=== PATIENT | male | born 1950 | race Caucasian/White ===

== ENCOUNTER 2018-08-27 12:13 | Emergency (ER) | payer OTHER ==
[~2018-08-27] VITALS: Ht 172.7 cm; Wt 77.6 kg
[2018-08-27 12:20] VITALS: Ht 172.7 cm; Wt 77.6 kg
[2018-08-27] MEDS ORDERED: SOD CHLORIDE 0.9% 1,000 ML IV STA (13:26)
[2018-08-27] MEDS ORDERED: ALBUTEROL 0.083% (NEB) 2.5 MG/3 ML AMP HHN STA (13:26)
[2018-08-27] MEDS ORDERED: IPRATROPIUM (NEB) 0.5 MG/2.5 ML AMP INH ONE (13:30)
--- NOTE | 2018-08-27 13:41 | ERD ---
ER Documentation Chief Complaint Chief Complaint chest pain radiating to lt arm x 5 days HPI This is a 68-year-old male with no past medical history. The patient does smoke tobacco. He indicates for the past 5 days he has been having a productive cough with right-sided chest pain. . The patient went to his primary care physician and had been placed on Levaquin as he states he had similar symptoms 20 years prior to arrival when he was diagnosed with pneumonia. He has taken 500 mg of Levaquin once daily for the past 4 days. He however indicates that initially the chest pain was 10 out of 10 and was a pleuritic chest pain. He indicates that it has improved but not completely resolved. He denies any recent travel or prolonged immobilization. He has no swelling or pain of his lower extremities. He has had a tactile fever with shaking and chills and no antipyretics were taken prior to arrival. The patient does state that the pain today did begin to radiate to the left chest wall and left arm. The pain was exacerbated when he would cough or move his upper extremities. He has no family history of coronary artery disease. ROS All systems reviewed and are negative except as per history of present illness. Medications Home Meds Active Scripts Albuterol Sulfate* (Proair HFA*) 8.5 Gm Hfa.aer.ad, 2 PUFF INH Q6H PRN for WHEEZING AND SOB, #1 INHALER Prov:MILKA DAVENPORT MD 08/27/18 Reported Medications Levofloxacin* (Levaquin*) 500 Mg Tablet, 500 MG PO DAILY, TAB STARTED 08-23-18 FOR 7 DAYS 08/27/18 Allergies Allergies: Coded Allergies: No Known Allergy (Unverified , 08/27/18) Physical Exam Vitals Vital Signs Date Temp Pulse Resp B/P (MAP) Pulse Ox O2 O2 Flow FiO2 Time Delivery Rate 08/27/18 94 20 132/85 100 Room Air 16:00 (101) 08/27/18 77 19 96 21 15:57 08/27/18 98.9 92 18 143/87 98 Room Air 15:30 (105) 08/27/18 98.1 105 18 141/77 98 12:20 (98) Physical Exam Constitutional:Well-developed. Well-nourished. HEENT:Normocephalic. Atraumatic.Pupils were equal round reactive to light. Moist mucous membranes.No tonsillar exudates. Neck: No nuchal rigidity. No lymphadenopathy. No posterior cervical spine tenderness or step-offs. Respiratory: Not using accessory muscles of respiration.Lungs were clear to auscultation bilaterally however breath sounds were diminished on the right compared to the left.. No rhonchi. No rales. Mild wheezing. Cardiovascular: Regular rate regular rhythm.No murmurs. No rubs were appr eciated.S1, S2 normal. Distal pulses are palpable 2+ bilaterally. GI: Abdomen was soft. Nontender. Non Distended. No pulsatile abdominal masses or bruits. No rebound. No guarding. Bowel sounds were present and normal. Muscle skeletal: Full range of motion of both the upper and lower extremities bilaterally.Normal muscle tone.No assymetrical calf tenderness or swelling. Skin: No petechia, no purpura. No lesions on the palms or the soles of the feet. No maculopapular rash. NEURO: Patient was alert, awake, orientated x3.No facial droop. Gait observed and normal with no ataxia.Speech had regular rate and rhythm. No focal neurological deficits. Result Diagram: 08/27/18 1352 08/27/18 1352 Results 24 hrs Laboratory Tests Test 08/27/18 13:52 08/27/18 14:25 White Blood Count 8.7 10^3/ul Red Blood Count 3.76 10^6/ul Hemoglobin 12.7 g/dl Hematocrit 38.4 % Mean Corpuscular Volume 102.1 fl Mean Corpuscular Hemoglobin 33.8 pg Mean Corpuscular Hemoglobin Concent 33.1 g/dl Red Cell Distribution Width 12.6 % Platelet Count 344 10^3/UL Mean Platelet Volume 8.8 fl Immature Granulocytes % 0.500 % Neutrophils % 67.3 % Lymphocytes % 20.0 % Monocytes % 10.7 % Eosinophils % 1.3 % Basophils % 0.2 % Nucleated Red Blood Cells % 0.0 /100WBC Immature Granulocytes # 0.040 10^3/ul Neutrophils # 5.9 10^3/ul Lymphocytes # 1.7 10^3/ul Monocytes # 0.9 10^3/ul Eosinophils # 0.1 10^3/ul Basophils # 0.0 10^3/ul Nucleated Red Blood Cells # 0.0 10^3/ul Prothrombin Time 14.7 Sec Prothrombin Time Ratio 1.1 INR International Normalized Ratio 1.14 Activated Partial Thromboplast Time 41.6 Sec Sodium Level 139 mmol/L Potassium Level 4.0 mmol/L Chloride Level 108 mmol/L Carbon Dioxide Level 23 mmol/L Anion Gap 8 Blood Urea Nitrogen 15 mg/dl Creatinine 0.81 mg/dl Est Glomerular Filtrat Rate mL/min > 60 mL/min Glucose Level 124 mg/dl Calcium Level 9.4 mg/dl Total Bilirubin 0.4 mg/dl Direct Bilirubin 0.00 mg/dl Indirect Bilirubin 0.4 mg/dl Aspartate Amino Transf (AST/SGOT) 23 IU/L Alanine Aminotransferase (ALT/SGPT) 29 IU/L Alkaline Phosphatase 91 IU/L Troponin I < 0.012 ng/ml B-Type Natriuretic Peptide 160 PG/ML Total Protein 7.4 g/dl Albumin 3.6 g/dl Globulin 3.80 g/dl Albumin/Globulin Ratio 0.94 Urine Color RIANNA Urine Clarity CLEAR Urine pH 5.0 Urine Specific [place] 1.029 Urine Ketones NEGATIVE mg/dL Urine Nitrite NEGATIVE mg/dL Urine Bilirubin NEGATIVE mg/dL Urine Urobilinogen 2+ mg/dL Urine Leukocyte Esterase NEGATIVE Jeane/ul Urine Hemoglobin NEGATIVE mg/dL Urine Glucose NEGATIVE mg/dL Urine Total Protein NEGATIVE mg/dl Current Medications Medications Dose Sig/Matthieu Start Time Status Last (Trade) Ordered Route PRN Stop Time Admin Dose Reason Admin Sodium 1,000 ml @ Q1H STAT 08/27/18 DC 08/27/18 Chloride 1,000 mls/hr IV 13:26 08/27/18 13:54 14:25 Albuterol 5 mg ONCE STAT 08/27/18 DC 08/27/18 (Proventil HHN 13:26 08/27/18 15:54 0.083% (Neb)) 13:37 Ipratropium 0.5 mg ONCE ONCE 08/27/18 DC 08/27/18 [place] IN[facility] 13:30 08/27/18 15:54 (Atrovent 13:37 0.02% (Neb)) IV Flush 10 ml STK-MED 08/27/18 DC (NS 10 ml) ONCE .ROUTE 14:42 08/27/18 14:43 Sodium 100 ml @ ud STK-MED 08/27/18 DC Chloride ONCE .ROUTE 14:42 08/27/18 14:43 Iohexol 100 ml @ ud STK-MED 08/27/18 DC ONCE .ROUTE 14:42 08/27/18 14:43 Procedures/MDM The patient presented to the emergency department complaining of chest pain. My clinical evaluation and workup was to distinguish minor causes of chest pain from acute life threatening cardiopulmonary causes such as myocardial infarction, pulmonary embolism, aortic dissection, esophageal rupture, cardiac tamponade, The patient was placed on a legal analyst, continuous pulse oximetry and IV access established by nursing staff. The patient was given IV fluids and aspirin. The patient was refusing any further analgesic medication. He stated this did not improve his symptoms. 12 Lead EKG tracing ordered and reviewed by myself showed: Sinus tachycardia 102 bpm and no arrhythmia. CA interval normal. QRS duration normal. No ST segment elevation No ST segment depression. No changes consistent with acute ischemia. Chest radiograph showed no infiltrates pneumothorax or pleural effusions. Given the severity of the patient's symptoms I do feel is necessary to obtain a CT scan of the chest in order to rule out for an aortic dissection or pulmonary embolism. This was reviewed by the radiologist and indicate the following: Technically satisfactory CT pulmonary angiogram without evidence of pulmonary thromboembolic disease to the segmental arterial level. Small to moderate pericardial effusion with a nonspecific loculated fluid collection noted along the right heart border within the mediastinal fat. Small left pleural effusion. At least moderate smoking-related emphysema. The patient did receive a nebulizer treatment while in the emergency department. I did feel the patient's symptoms are likely result of emphysema and pleurisy. The patient indicates that several months ago he had a significant cardiac work- up with a stress test that was found to be normal. The patient does have a heavy tobacco history that could have been exacerbating his symptoms. I indicated that at this time he did not see a pneumonia but he is on day 4 of 7 o f Levaquin and I did instruct the patient to continue to take the Levaquin. He will follow-up with his primary care physician and stated he felt comfortable being discharged home and did not want to be admitted to the hospital for observation. Departure Diagnosis: Primary Impression: Pleurisy Additional Impression: Emphysema of lung Condition: MILKA Arcos MD Aug 27, 2018 13:41
[2018-08-27] MEDS ORDERED: IOHEXOL 100 ML ONE (14:42)
[2018-08-27] MEDS ORDERED: SOD CHLORIDE 0.9% 100 ML ONE (14:42)
[2018-08-27 16:00] VITALS: BP 132/85; PULSE 94; RESP 20
[2018-08-27] MEDS ORDERED: LEVO500T48 PO (16:09)
[2018-08-27] MEDS ORDERED: ALBU8.5H8 INH (16:40)
== END 2018-08-27 16:55 | disposition home or self-care (01) ==
LOC: E/R 12:13
DX: J43.9 Emphysema, unspecified (principal); F17.210 Nicotine dependence, cigarettes, uncomplicated; R09.1 Pleurisy; R50.9 Fever, unspecified
CPT/HCPCS: 71045; 71275; 80053; 81003; 83880; 84484; 85025; 85610; 85730; 87040; 87086; 87400; 93005; 94664; 99285; J7030; Q9967

== ENCOUNTER 2018-09-11 11:30 | Inpatient (IN) | payer OTHER ==
[~2018-09-11] VITALS: Ht 180.3 cm; Wt 78.4 kg
[~2018-09-11 11:30] MED LIST: ALBU8.5H8 INH; LEVO500T48 PO
[2018-09-11] MEDS ORDERED: SODIUM CHLORIDE 0.9% 1L BAG IV* STA (12:36)
[2018-09-11] MEDS ORDERED: CEFEPIME 1GM/50 ML (PMX) 50 ML IVPB ONE (14:00)
[2018-09-11] MEDS ORDERED: ONDANSETRON 4 MG INJ IV PRN (14:00)
[2018-09-11] MEDS ORDERED: ACETAMINOPHEN 325 MG TAB PO PRN ×2 (14:00→18:00)
[2018-09-11] MEDS ORDERED: VANCOMYCIN 1 GM (PMX) 250 ML IVPB ONE (14:00)
--- NOTE | 2018-09-11 15:32 | ERD ---
ER Documentation Chief Complaint Chief Complaint CP and Fever x 1 month, was told he had liquid around heart HPI This is a 68-year-old male with a past medical history of previous pneumonias and active daily tobacco abuse who is presenting with approximately 1 month of waxing and waning fevers, chest discomfort, cough, feeling generally unwell. The patient has been evaluated previously by his primary care physician and given a 7-day course of Levaquin. They do not seem to help his symptoms, and the patient came to the emergency department on August 27 for persistent symptoms. The patient did have a CTA of the chest performed at that time that revealed no PE. There appeared to be a small to moderate pericardial effusion with nonspecific loculated fluid collection noted along the right heart border within the mediastinal fat. This was concerning, and the patient was reportedly offered admission, but he refused. The patient saw his primary care physician shortly after that on the , and the patient was started on 5 days of steroids. After being started on steroids, the patient symptoms seem to improve. Unfortunately, after stopping the steroids, the patient's symptoms recurred. Since then, the patient has had waxing and waning fever, chills, mid substernal sore aching moderate chest pain, exacerbated by breathing and moving. The patient reports improvement of the fever with ibuprofen, but it constantly recurs. The patient took ibuprofen approximately 1 hour prior to arrival to the emergency department and is currently afebrile. The patient has had no headache or vision changes. The patient does not endorse neck or back pain. The patient denies lightheadedness or dizziness. The patient denies nausea or vomiting. The patient denies abdominal pain. The patient denies changes to bowel movements or urination. The patient has had no focal deficits. The patient has had no weakness or numbness or tingling to the face or extremities. ROS All systems reviewed and are negative except as per history of present illness. Medications Home Meds Discontinued Reported Medications Levofloxacin* (Levaquin*) 500 Mg Tablet, 500 MG PO DAILY, TAB STARTED 08-23-18 FOR 7 DAYS 08/27/18 Discontinued Scripts Albuterol Sulfate* (Proair HFA*) 8.5 Gm Hfa.aer.ad, 2 PUFF INH Q6H PRN for WHEEZING AND SOB, #1 INHALER Prov:MILKA DAVENPORT MD 08/27/18 Allergies Allergies: Coded Allergies: No Known Allergy (Unverified , 09/11/18) PMhx/Soc History of Surgery: No Anesthesia Reaction: No Hx Neurological Disorder: No Hx Respiratory Disorders: Yes (PNA) Hx Cardiac Disorders: No Hx Psychiatric Problems: No Hx Miscellaneous Medical Probl: No Hx Alcohol Use: Yes Hx Substance Use: No Hx Tobacco Use: Yes Smoking Status: Current every day smoker FmHx Family History: No diabetes Physical Exam Vitals Vital Signs Date Temp Pulse Resp B/P (MAP) Pulse Ox O2 O2 Flow FiO2 Time Delivery Rate 09/11/18 97.4 92 18 104/79 99 Room Air 15:04 (87) 09/11/18 98.5 103 22 105/66 97 Room Air 12:20 (79) 09/11/18 98.0 120 19 120/63 99 11:32 (82) Physical Exam Const: No apparent distress, well-developed, well-nourished Head: Normocephalic, Atraumatic Eyes: Normal Conjunctiva. Extraocular movements intact. Pupils equal, round and reactive to light ENT: Normal External Ears, Nose and Mouth. Neck: Full range of motion. No meningismus. Resp: Bibasilar rales. No wheezes or rhonchi Cardio: Regular rhythm. Tachycardia. No murmurs, rubs or gallops Abd: Soft, non tender, non distended. Normal bowel sounds Skin: No petechiae or rashes Back: No midline tenderness. No CVA tenderness Ext: No cyanosis, or edema Neur: Awake and alert, oriented 4. Cranial nerves intact. No facial droop. Normal strength, sensation and coordination. Psych: Normal Mood and Affect Result Diagram: 09/11/18 1156 09/11/18 1156 Results 24 hrs Laboratory Tests Test 09/11/18 11:56 09/11/18 12:47 09/11/18 12:59 09/11/18 14:09 White Blood Count 22.5 10^3/ul Red Blood Count 4.02 10^6/ul Hemoglobin 13.5 g/dl Hematocrit 41.4 % Mean Corpuscular 103.0 fl Volume Mean Corpuscular 33.6 pg Hemoglobin Mean Corpuscular 32.6 g/dl Hemoglobin Concen t Red Cell 12.7 % Distribution Width Platelet Count 378 10^3/UL Mean Platelet 9.4 fl Volume Immature 0.700 % Granulocytes % Neutrophils % 85.0 % Lymphocytes % 8.0 % Monocytes % 6.1 % Eosinophils % 0.0 % Basophils % 0.2 % Nucleated Red 0.0 /100WBC Blood Cells % Immature 0.160 10^3/ul Granulocytes # Neutrophils # 19.1 10^3/ul Lymphocytes # 1.8 10^3/ul Monocytes # 1.4 10^3/ul Eosinophils # 0.0 10^3/ul Basophils # 0.1 10^3/ul Nucleated Red 0.0 10^3/ul Blood Cells # Prothrombin Time 15.5 Sec Prothrombin Time 1.2 Ratio INR International 1.22 Normalized Ratio Sodium Level 139 mmol/L Potassium Level 4.0 mmol/L Chloride Level 107 mmol/L Carbon Dioxide 22 mmol/L Level Anion Gap 10 Blood Urea 16 mg/dl Nitrogen Creatinine 1.04 mg/dl Est Glomerular > 60 mL/min Filtrat Rate mL/min Glucose Level 142 mg/dl Calcium Level 9.4 mg/dl Troponin I < 0.012 ng/ml B-Type 363 PG/ML Natriuretic Peptide POC Venous 0.7 mmol/L Lactate Urine Color RIANNA Urine Clarity CLEAR Urine pH 5.0 Urine Specific 1.026 [place] Urine Ketones TRACE mg/dL Urine Nitrite NEGATIVE mg/dL Urine Bilirubin NEGATIVE mg/dL Urine 1+ mg/dL Urobilinogen Urine Leukocyte NEGATIVE Jeane/ul Esterase Urine Microscopic 3 /HPF RBC Urine Microscopic 3 /HPF WBC Urine Mucus MANY /HPF Urine Hemoglobin NEGATIVE mg/dL Urine Glucose NEGATIVE mg/dL Urine Total 1+ mg/dl Protein Lactic Acid Level 0.9 mmol/L Current Medications Medications Dose Sig/Matthieu Start Time Status Last (Trade) Ordered Route PRN Stop Time Admin Dose Reason Admin Sodium 2,240 ml BOLUS OVER 2 09/11/18 DC 09/11/18 Chloride HOURS STAT 12:36 13:08 (NS) IV* 09/11/18 12:38 Vancomycin 250 ml @ ONCE ONCE 09/11/18 09/11/18 HCl 125 mls/hr IVPB 14:00 14:30 09/11/18 15:59 Cefepime HCl 50 ml @ ONCE ONCE 09/11/18 DC 09/11/18 100 mls/hr IVPB 14:00 13:58 09/11/18 14:29 Ondansetron 4 mg ER BRIDGE 09/11/18 HCl (Zofran PRN IV 14:00 Inj) NAUSEA/VOMITI 09/12/18 13:59 NG 650 mg ER BRIDGE 09/11/18 Acetaminophen PRN PO 14:00 (Tylenol .MILD PAIN 09/12/18 13:59 Tab) 1-3 OR TEMP Procedures/MDM MDM The patient's presentation warrants further investigation. Previous medical records, if available, were reviewed. LABS The patient's laboratory testing was obtained and reviewed. No emergent treatment was required unless described below. CBC: Significant leukocytosis with a left shift, a significant change from the last blood work performed on August 27, 2018. Continued macrocytic anemia, not emergent. Normal platelet count. Chemistry: No E/o severe acidosis or alkalosis or renal failure or diabetic ketoacidosis PT/INR: No E/o significant coagulopathy Lactate: No E/o severe sepsis Troponin: No E/o acute ischemia BNP: Indeterminate, low clinical suspicion for heart failure Urine: No E/o acute infection or hematuria EKG EKG read by me: Rate/Rhythm: Sinus tachycardia at 117 bpm Intervals: Normal Donovan: Normal Impression: Nonspecific repolarization changes without evidence of acute ischemia. Sinus tachycardia. IMAGING Imaging and Radiology interpretation reviewed. CXR FINDINGS: The cardiomediastinal silhouette is within normal limits. There is atelectasis at the left lung base with small effusion.. The osseous structures and soft tissues are unremarkable. IMPRESSION: No pneumonia or failure. Left basilar atelectasis with small effusion. Electronically viewed and signed by .Wily Hernandes MD, on 09/11/2018 12:35 TREATMENT/DISPOSITION The patient presents for persistent waxing and waning progressive fever, chills, chest pain and shortness of breath. The patient's fever is of unknown origin. The patient appears to have had a loculated pericardial effusion during a CT scan performed this month. This could be related to his symptoms today. That said, if the patient had a severe infection around the heart, I would anticipate more critical cardiac markers. That said, the patient does have a new significant leukocytosis, which is certainly concerning. Once a CBC was resulted, I did opt to complete a septic work-up. Fortunately, the patient's lactic acid is within normal limits and I do not see evidence of endorgan damage. While the patient may meet SIRS criteria for sepsis, I do not believe the patient is in severe sepsis or septic shock. That said, the patient was initiated on a sepsis bolus of IV fluids as well as antibiotics. Blood and urine cultures were sent off prior to initiation of antibiotics. The patient did also endorse chest pain. The patient's chest xray does not reveal pneumonia or pneumothorax or pulmonary edema. The patient does not have a widened mediastinum and does not have signs or symptoms concerning for thoracic aortic aneurysm or dissection. The patient does not have pneumomediastinum or signs concerning for esophageal tear or rupture. The patient has no clinical or radiographic signs of pericardial effusion or tamponade. The patient does not have pneumoperitoneum and I have decreased suspicion of viscus perforation as possible referred pain. The patient does not have a history of heart failure and I have low suspicion for this. The patient does appear to have a diagnosis of COPD but is not wheezing today. I do not suspect a COPD exacerbation. The patient is not tachypneic or hypoxic. The patient is breathing comfortably and without pleuritic pain. The patient is not on hormonal therapy. The patient has no history of clotting or bleeding disorders. The patient has no calf tenderness. The patient has had no hemoptysis. I have decreased suspicion for PE. The patient's troponin and EKG are reassuring. I have low suspicion for acute coronary syndrome. SEPSIS NOTE SIRS Criteria: Leukocytosis, tachycardia Infectious source: Unknown End organ damage indicated by: None SEPSIS MANAGEMENT Time to recognize sepsis: 12:30 Time to recognize severe sepsis: No severe sepsis at this time. Time to recognize septic shock: No septic shock at this time. 3 HOUR BUNDLE Blood cultures x 2 before abx: Yes 30 ml/kg NS bolus completed Initial lactate 0.7 Repeat lactate 0.9 SEPTIC SHOCK ASSESSMENT: NO lactic acid > 4.0 NO persistent hypotension (SBP < 90 or 40 mmHg drop, MAP < 65) despite 30 L/kg IV fluid bolus CRITICAL CARE Critical care time 35 minutes Emergent fluid management while maintaining close respiratory support. Provision of immediate and broad-spectrum antibiotic therapy. Simultaneous assessment for possible sources in order to direct targeted therapy. Consideration for invasive and chemical support to prevent cardiopulmonary collapse. Critical care time is independent of procedures performed. ADMISSION The patient will be admitted to the the [facility] insurance provider in accordance with the patient's insurance. The patient was accepted by Dr. Blanco at 1:30 PM on September 11, 2018. Disclaimer: Inadvertent spelling and grammatical errors are likely due to EHR/dictation software use and do not reflect on the overall quality of patient care. Note that the electronic time recorded on this note does not necessarily reflect the actual time of the patient encounter. Departure Diagnosis: Primary Impression: Sepsis Sepsis type: sepsis due to unspecified organism Qualified Codes: A41.9 - Sepsis, unspecified organism Additional Impressions: Fever of unknown origin Tachycardia Leukocytosis Leukocytosis type: unspecified Qualified Codes: D72.829 - Elevated white blood cell count, unspecified Chest pain Chest pain type: unspecified Qualified Codes: R07.9 - Chest pain, unspecified Macrocytic anemia Condition: Serious KORI LABOY MD Sep 11, 2018 15:30
[2018-09-11 16:23] VITALS: PULSE 94
[2018-09-11 16:46] VITALS: BP 114/68; PULSE 88; RESP 20
[2018-09-11 16:59] VITALS: Ht 180.3 cm; Wt 78.4 kg
[2018-09-11] MEDS ORDERED: ONDANSETRON 4 MG TAB PO PRN (18:00)
[2018-09-11] MEDS ORDERED: DOCUSATE SODIUM 100 MG CAP PO PRN (18:00)
[2018-09-11] MEDS ORDERED: NACL 0.9% 3 ML SYG IV SCH (18:00)
[2018-09-11] MEDS: ENOXAPARIN 40 MG/0.4 ML SYG SC SCH (18:08)
[2018-09-11 19:22] VITALS: BP 131/73; PULSE 100; RESP 18
[2018-09-11 20:24] VITALS: PULSE 107
[2018-09-11] MEDS: FAMOTIDINE 20 MG TAB PO SCH (20:57)
[2018-09-11 23:48] VITALS: BP 119/64; PULSE 100; RESP 18
[2018-09-12] VITALS (11 sets, daily range): BP systolic 109–140; BP diastolic 65–82; PULSE 70–112; RESP 18–20
[2018-09-12] MEDS: FAMOTIDINE 20 MG TAB PO SCH ×2 (09:08→21:07)
[2018-09-12] MEDS: ENOXAPARIN 40 MG/0.4 ML SYG SC SCH (09:27)
--- NOTE | 2018-09-12 12:35 | HP ---
DATE OF ADMISSION: 09/11/2018 CHIEF COMPLAINT: Chest pain and fever x1 month. HISTORY OF PRESENT ILLNESS: A 68-year-old male with unremarkable past medical history who presented to Emergency Room with complaint of on and off fevers and pleuritic chest pain x1 month. The patient was seen by primary care physician as outpatient and treated with 7 days of Levaquin. His symptoms did not improve. He was seen in the Emergency Room on 08/27/2018. At that time, a CT pulmonary yomaira ogram of the chest reveals no evidence of pulmonary embolus. However, there was a small to moderate pericardial effusion with nonspecific loculated fluid collection along the right heart border within the mediastinal fat. The patient received a course of steroids as outpatient and his symptoms improv ed for a short period of time. REVIEW OF SYSTEMS: He denies cough. No exertional chest pain. No PND, orthopnea. No abdominal tye n, nausea or vomiting. No genitourinary symptoms. He continues to have pleuritic chest pain. His w lianne blood cell count on admission was 22,000. PAST MEDICAL HISTORY: History of pneumonia 20 years prior to admission. SOCIAL HISTORY: Patient lives at home. He admits to smoking on a daily basis. PHYSICAL EXAMINATION: GENERAL: Well-developed, well-nourished male who is in no apparent distress. VITAL SIGNS: Stable. He is afebrile. HEENT: Extraocular muscles intact. Pupils equal and reactive to light bilaterally. Sclerae are ani cteric. Oropharynx is clear and moist. NECK: Supple, no JVD, no carotid bruits. LUNGS: Clear to auscultation bilaterally. CARDIAC: Regular rate and rhythm. No murmurs, rubs or gallops. No audible pericardial rub. ABDOMEN: Soft, nontender, nondistended, normoactive bowel sounds. EXTREMITIES: No clubbing, cyanosis, or edema. NEUROLOGICAL: Grossly nonfocal. LABORATORY DATA: White blood cell count 16.5, hemoglobin 11.7, platelet count is 288,000. BMP is wi thin normal limits. TSH is 0.351. Serial troponins are normal. The lactic acid was normal. Hemogl obin A1c was 5.5. ASSESSMENT: A 68-year-old male with a history of on and off fever and pleuritic chest pain x1 month. Findings are consistent with subacute pericarditis. A CT angiogram done on 08/27/2018 revealed ashish dence of pericardial fluid collection, possibly loculated. PLAN: 1. Place in tele observation. Continue IV antibiotics. 2. Start colchicine. 3. 2-D echocardiogram. 4. Cardiology and infectious disease consultations were requested. The case was discussed with Drs. Houston and Michael. Dictated By: GINGER GRAY/NTS Conf#: [id number] DID#: [id number] CC: UBALDO BERMEO MD; JUANPABLO CAMPBELL DO; EVA HOUSTON MD;*EndCC*
--- NOTE | 2018-09-12 12:38 | CONS ---
Assessment/Plan Assessment/Plan Hospital Course (Demo Recall) Chest pain and fever Pericardial effusion Tobacco use Patient presents with chest pain, chills, fevers going on for 1 month Chest pain is worse with deep inspiration and when febrile Serial cardiac enzymes are negative CT chest performed earlier this month with evidence of pericardial effusion likely fluid collection on the right side of the heart Bedside echocardiogram currently being performed with small effusion with evidence of echodense material around the pericardium. We will await ID input, would also request CT surgery, awaiting completed echocardiogram Consultation Date/Type/Reason Admit Date/Time Sep 11, 2018 at 13:53 Type of Consult Cardiology Reason for Consultation Chest pain and fever for 1 month Date/Time of Note DATE: 09/12/18 TIME: 12:34 Hx of Present Illness This is a 68-year-old male with past medical history of hypertension who presents with fevers, chills and chest pain for 1 month. When patient is febrile, his chest pain worsens. Also worse with deep inspiration. Denies exertional chest pain or shortness of breath. When his fever resolves, his chest pain also resolves. He is currently feeling better. Denies any weight loss. He does admit to a long surgery approximately 20 years ago. He does currently smoke. Denies any cardiac history. 12 point review of systems was performed with all pertinent positives and negatives mentioned above and all else is negative Past Medical History Medical History: hypertension Home Meds Discontinued Reported Medications Levofloxacin* (Levaquin*) 500 Mg Tablet, 500 MG PO DAILY, TAB STARTED 08-23-18 FOR 7 DAYS 08/27/18 Discontinued Scripts Albuterol Sulfate* (Proair HFA*) 8.5 Gm Hfa.aer.ad, 2 PUFF INH Q6H PRN for WHEEZING AND SOB, #1 INHALER Prov:MILKA DAVENPORT MD 08/27/18 Medications Current Medications Ondansetron HCl (Zofran Inj) 4 mg ER BRIDGE PRN IV NAUSEA/VOMITING; Start 09/11/18 at 14:00; Stop 09/12/18 at 13:59 Acetaminophen (Tylenol Tab) 650 mg ER BRIDGE PRN PO .MILD PAIN 1-3 OR TEMP Last administered on 09/11/18at 20:58; Admin Dose 650 MG; Start 09/11/18 at 14:00; Stop 09/12/18 at 13:59 IV Flush (NS 3 ml) 3 ml PER PROTOCOL IV ; Start 09/11/18 at 18:00 Ondansetron HCl (Zofran Tab) 4 mg Q6H PRN PO NAUSEA/VOMITING; Start 09/11/18 at 18:00 Acetaminophen (Tylenol Tab) 650 mg Q6H PRN PO .PAIN 1-3 OR TEMP; Start 09/11/18 at 18:00 Docusate Sodium (Colace) 100 mg Q12H PRN PO .CONSTIPATION; Start 09/11/18 at 18:00 Famotidine (Pepcid) 20 mg Q12 PO Last administered on 09/12/18at 09:08; Admin Dose 20 MG; Start 09/11/18 at 21:00 Enoxaparin Sodium (Lovenox) 40 mg DAILY SC Last administered on 09/12/18at 09:27; Admin Dose 40 MG; Start 09/11/18 at 18:00 Allergies: Coded Allergies: No Known Allergy (Unverified , 09/11/18) Past Surgical History Lung surgery Social History Smoking Status: Current every day smoker Exam/Review of Systems Vital Signs Vitals Vital Signs Date Temp Pulse Resp B/P (MAP) Pulse Ox O2 O2 Flow FiO2 Time Delivery Rate 09/12/18 98.3 112 20 121/65 93 11:07 (83) 09/12/18 Room Air 03:39 Intake and Output 09/11/18 09/11/18 09/12/18 1515:00 23:00 07:00 IntakeIntake Total 2540 ml 480 ml BalanceBalance 2540 ml 480 ml Exam Constitutional: alert, oriented (No apparent distress) Head: normocephalic Respiratory: other (Coarse breath sounds bilaterally, no wheezing) Cardiovascular: regular rate and rhythm (S1-S2 heard) Gastrointestinal: soft, non-tender, bowel sounds Extremities: other (No significant edema) Labs Result Diagram: 09/12/18 0542 09/12/18 0542 Results 24hrs Laboratory Tests Test 09/11/18 12:47 09/11/18 12:59 09/11/18 14:09 09/11/18 15:47 POC Venous Lactate 0.7 Urine Color RIANNA Urine Clarity CLEAR Urine pH 5.0 Urine Specific 1.026 [place] Urine Ketones TRACE A Urine Nitrite NEGATIVE Urine Bilirubin NEGATIVE Urine Urobilinogen 1+ H Urine Leukocyte NEGATIVE Esterase Urine Microscopic 3 RBC Urine Microscopic 3 WBC Urine Mucus MANY A Urine Hemoglobin NEGATIVE Urine Glucose NEGATIVE Urine Total Protein 1+ H Lactic Acid Level 0.9 1.7 Test 09/11/18 19:19 09/11/18 19:20 09/12/18 00:24 09/12/18 05:42 D-Dimer 2306.89 H D-Dimer Comment Lactic Acid Level 1.4 Creatine Kinase 24 < 20 L Creatine Kinase 1.3 Index Creatinine Kinase MB 0.32 0.33 (Mass) Troponin I < 0.012 < 0.012 Erythrocyte 96 H Sedimentation Rate Uric Acid 3.0 L Lactate 619 H Dehydrogenase White Blood Count 16.5 #H Red Blood Count 3.49 L Hemoglobin 11.7 L Hematocrit 36.3 L Mean Corpuscular 104.0 H Volume Mean Corpuscular 33.5 H Hemoglobin Mean Corpuscular 32.2 Hemoglobin Concent Red Cell 12.7 Distribution Width Platelet Count 288 # Mean Platelet Volume 9.5 Immature 0.600 H Granulocytes % Neutrophils % 81.5 H Lymphocytes % 11.0 L Monocytes % 6.4 Eosinophils % 0.3 Basophils % 0.2 Nucleated Red Blood 0.0 Cells % Immature 0.100 H Granulocytes # Neutrophils # 13.4 H Lymphocytes # 1.8 Monocytes # 1.1 H Eosinophils # 0.1 Basophils # 0.0 Nucleated Red Blood 0.0 Cells # Sodium Level 141 Potassium Level 4.3 Chloride Level 108 Carbon Dioxide Level 25 Anion Gap 8 Blood Urea Nitrogen 11 Creatinine 0.88 Est Glomerular > 60 Filtrat Rate mL/min Glucose Level 113 Hemoglobin A1c 5.5 Calcium Level 8.9 Thyroid Stimulating 0.351 L Hormone (TSH) Imaging Imaging ECG sinus tachycardia 117 bpm, QRS 74 ms, nonspecific ST abnormalities Medications Medications Current Medications Ondansetron HCl (Zofran Inj) 4 mg ER BRIDGE PRN IV NAUSEA/VOMITING; Start 09/11/18 at 14:00; Stop 09/12/18 at 13:59 Acetaminophen (Tylenol Tab) 650 mg ER BRIDGE PRN PO .MILD PAIN 1-3 OR TEMP Last administered on 09/11/18at 20:58; Admin Dose 650 MG; Start 09/11/18 at 14:00; Stop 09/12/18 at 13:59 IV Flush (NS 3 ml) 3 ml PER PROTOCOL IV ; Start 09/11/18 at 18:00 Ondansetron HCl (Zofran Tab) 4 mg Q6H PRN PO NAUSEA/VOMITING; Start 09/11/18 at 18:00 Acetaminophen (Tylenol Tab) 650 mg Q6H PRN PO .PAIN 1-3 OR TEMP; Start 09/11/18 at 18:00 Docusate Sodium (Colace) 100 mg Q12H PRN PO .CONSTIPATION; Start 09/11/18 at 18:00 Famotidine (Pepcid) 20 mg Q12 PO Last administered on 09/12/18at 09:08; Admin Dose 20 MG; Start 09/11/18 at 21:00 Enoxaparin Sodium (Lovenox) 40 mg DAILY SC Last administered on 09/12/18at 09:27; Admin Dose 40 MG; Start 09/11/18 at 18:00 Angel Rodriguez DO Sep 12, 2018 12:38
[2018-09-12] MEDS: PIPER-TAZO 3.375 GM IV (PMX) 100 ML IVPB SCH ×2 (15:48→22:36)
[2018-09-12] MEDS ORDERED: VANCOMYCIN IV PER PHARMACY XX SCH (19:00)
--- NOTE | 2018-09-12 19:40 | CONS ---
Assessment/Plan Assessment/Plan Hospital Course (Demo Recall) assessment/impression - small effusion with evidence of echodense material around the pericardium on bedside echo on 09/11/2018. Differential diagnoses include purulent pericarditis or aseptic pericarditis. Among infectious disease etiologies, possible pathogens include odontogenic bacteria (see below), Staph and strep, respiratory pathogens, or mycobacteria and viruses. Non-infectious rheumatological etiologies are also possible given his h/o "swollen and red" eye at the beginning of this month and his response to steroid - chest CT on 08/27/2018 showed small to moderate pericardial effusion with a nonspecific loculated fluid collection along R heart border within the mediastinal fat, small left pleural effusion - recurrent fever, night sweat and chills concerning for disseminated infection - 3 month h/o a painful cyst of R upper gum between 10/2017 and - h/o excision of this painful cyst of R upper gum in 01/2018. He took amoxicillin for total 7 days in the perioperative period - edentulous status, lost his entire teeth by age 37. He developed - h/o R sided pneumonia with pleural effusion at [facility] approximately 20 years ago - h/o CT-guided R thoracentesis followed by a "surgery" (this may be VATS) - per PT, he was worked up for TB at that time - active smoker - monthly trip to [facility] [place] recommendations - please see the above differential diagnoses above. I recommend and ordered serological tests that are pertinent to his condition: quantiferon TB gold, coccidioides serology, HIV screen, adenovirus antibody, urine legionella antigen and M. pneumoniae serology - in 2017 Pt had a very painful cyst on R upper gum for 3 months requiring surgical excision in 01/2018 and I am concerned of endocarditis due to odontogenic bacteria. I recommend transesophageal echo to r/o valvular vegetation - I recommend IV vancomycin and pip/tazo (09/12/2018-) management d/w Pt and his Consultation Date/Type/Reason Admit Date/Time Sep 11, 2018 at 13:53 Date of Consultation: Sep 12, 2018 Type of Consult ID Reason for Consultation pericarditis Requesting Provider: GINGER MIDDLETON MD Date/Time of Note DATE: 09/12/18 TIME: 18:50 Hx of Present Illness This is a 68 yo male with h/o pneumonia approximately 20 years ago who presented at ER on 09/11/2018 for recurrent fever, night sweat and chills. At the beginning of this month, Pt started experiencing daily temperature approximately 39 C that is combined with drenching night sweat and alternating chills. This was associated with anterior chest tightness and pain with inspiration. Pt was evaluated by his PMD who gave him a 7 day course of levofloxacin. The above Sx persisted. Around 08/24/2018 he developed "very swollen and red R eye." so Pt presented at ER on 08/27/2018. Chest CT on 08/27/2018 showed small to moderate pericardial effusion with a nonspecific loculated fluid collection along R heart border within the mediastinal fat, small left pleural effusion. Pt was offered an admission but reportedly declined it. As the above Sx persisted, Pt was started on Solumedrol pack as outpatient. Pt says that chest pain, fever, night sweats and chills stopped. He took that last dose on 09/05/2018 but a few days later, the same Sx started again. As a result Pt came to ER on 09/11/2018. He was tachycardic and had WBC 22.5. It is unclear if this was related to his recent steroid use. Pt was evaluated by Dr. Rodriguez, and his bedside echo showed small effusion with evidence of echodense material around the pericardium. Pt was started on pip/tazo and was admitted. Approximately 20 years ago, Pt had similar Sx of fever, drenching night sweats, chills and R sided chest pain with inspiration. He was admitted at [facility]. He was told he had pneumonia and R sided pleural effusion. He had CT-guided R thoracentesis followed by a "surgery" (this may be VATS). Pt was placed on isolation until tuberculosis was ruled out. He does not recall the detail of his treatment. Eventually, fever, night sweats, chills and chest pain resolved. Pt was born and raised in [facility]; he currently lives in [facility] with his and son. He denies exposure to animals or small kids. He does not recall TB test other than the tuberculosis workup at [facility] 20 years ago. He smokes 1/2 ppd x 30-40 years, drinks occasionally and does not do recreational drugs. 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 He stays in [facility] [place], mingles only with professionals there. He has lost his entire teeth by age 37. He developed very painful "cyst" on R upper gum around 10/2017. He "struggled with the pain" for 3 months until 01/2018; he had cyst removed by a maxillofacial surgeon. He took amoxicillin for total 7 days in the perioperative period. Pt did not have other odontogenic infections/problems since then. He denies arthralgia, myalgia, visual change, sinus problems or rash. His detailed ROS is given below Dr. Middleton requested ID consultation on this Pt. Constitutional: chills, diaphoresis, febrile, other (weight loss) Eyes: redness (very swollen and red R eye around 08/24/2018) ENT: no complaints Respiratory: cough, shortness of breath (when he attempts to walk), sputum (his usual "smoker's cough") Cardiovascular: chest pain (mid-anterior chest pain), palpitations Gastrointestinal: no complaints Genitourinary: other (frequent urination) Musculoskeletal: no complaints Skin: no complaints Neurologic: no complaints Lymphatic: no complaints Past Medical History Medical History: other (hemorrhoids, cyst of buccal mucosa) Home Meds Discontinued Reported Medications Levofloxacin* (Levaquin*) 500 Mg Tablet, 500 MG PO DAILY, TAB STARTED 08-23-18 FOR 7 DAYS 08/27/18 Discontinued Scripts Albuterol Sulfate* (Proair HFA*) 8.5 Gm Hfa.aer.ad, 2 PUFF INH Q6H PRN for WHEEZING AND SOB, #1 INHALER Prov:MILKA DAVENPORT MD 08/27/18 Medications Current Medications IV Flush (NS 3 ml) 3 ml PER PROTOCOL IV ; Start 09/11/18 at 18:00 Ondansetron HCl (Zofran Tab) 4 mg Q6H PRN PO NAUSEA/VOMITING; Start 09/11/18 at 18:00 Acetaminophen (Tylenol Tab) 650 mg Q6H PRN PO .PAIN 1-3 OR TEMP Last administered on 09/12/18at 17:04; Admin Dose 650 MG; Start 09/11/18 at 18:00 Docusate Sodium (Colace) 100 mg Q12H PRN PO .CONSTIPATION; Start 09/11/18 at 18:00 Famotidine (Pepcid) 20 mg Q12 PO Last administered on 09/12/18at 09:08; Admin Dose 20 MG; Start 09/11/18 at 21:00 Enoxaparin Sodium (Lovenox) 40 mg DAILY SC Last administered on 09/12/18at 09:27; Admin Dose 40 MG; Start 09/11/18 at 18:00 Piperacillin Sod/ Tazobactam Sod 100 ml @ 200 mls/hr Q8 IVPB Last administered on 09/12/18at 15:48; Admin Dose 200 MLS/HR; Start 09/12/18 at 15:00 Allergies: Coded Allergies: No Known Allergy (Unverified , 09/11/18) Past Surgical History Past Surgical Hx: other (hemorrhoidectomy, cyst removal) Social History Alcohol Use: occasionally Smoking Status: Current every day smoker Drug Use: none Other Social History see HPI Exam/Review of Systems Exam Vitals Vital Signs Date Temp Pulse Resp B/P (MAP) Pulse Ox O2 O2 Flow FiO2 Time Delivery Rate 09/12/18 98.5 16:37 09/12/18 103 20 126/76 92 15:28 (93) 09/12/18 Room Air 03:39 Intake and Output 09/11/18 09/11/18 09/12/18 1515:00 23:00 07:00 IntakeIntake Total 2540 ml 480 ml BalanceBalance 2540 ml 480 ml Constitutional: alert, oriented, well developed Psych: no complaints, nl mood/affect Head: normocephalic, atraumatic Eyes: nl conjunctiva, EOMI, nl lids, nl sclera, PERRL; No icteric ENMT: nl external ears & nose, nl nasal mucosa & septum, mucosa pink and moist, other (edentulous, R upper gum: s/p cyst excision) Neck: supple, non-tender Respiratory: diminished breath sounds Cardiovascular: regular rate and rhythm, nl pulses; No edema Gastrointestinal: soft, non-tender; No distended, No tender Musculoskeletal: nl extremities to inspection Extremities: normal pulses Neurological: BRIM PLATER II-XII intact, nl mental status, nl speech, nl strength Skin: nl turgor, rash or lesions (?seborrhea on L thigh) Lymph: nl lymph nodes Results Result Diagram: 09/12/18 0542 09/12/18 0542 Results 24hrs Laboratory Tests Test 09/11/18 19:19 09/11/18 19:20 09/12/18 00:24 09/12/18 05:42 D-Dimer 2306.89 H D-Dimer Comment Lactic Acid Level 1.4 Creatine Kinase 24 < 20 L Creatine Kinase 1.3 Index Creatinine Kinase MB 0.32 0.33 (Mass) Troponin I < 0.012 < 0.012 Erythrocyte 96 H Sedimentation Rate Uric Acid 3.0 L Lactate 619 H Dehydrogenase White Blood Count 16.5 #H Red Blood Count 3.49 L Hemoglobin 11.7 L Hematocrit 36.3 L Mean Corpuscular 104.0 H Volume Mean Corpuscular 33.5 H Hemoglobin Mean Corpuscular 32.2 Hemoglobin Concent Red Cell 12.7 Distribution Width Platelet Count 288 # Mean Platelet Volume 9.5 Immature 0.600 H Granulocytes % Neutrophils % 81.5 H Lymphocytes % 11.0 L Monocytes % 6.4 Eosinophils % 0.3 Basophils % 0.2 Nucleated Red Blood 0.0 Cells % Immature 0.100 H Granulocytes # Neutrophils # 13.4 H Lymphocytes # 1.8 Monocytes # 1.1 H Eosinophils # 0.1 Basophils # 0.0 Nucleated Red Blood 0.0 Cells # Sodium Level 141 Potassium Level 4.3 Chloride Level 108 Carbon Dioxide Level 25 Anion Gap 8 Blood Urea Nitrogen 11 Creatinine 0.88 Est Glomerular > 60 Filtrat Rate mL/min Glucose Level 113 Hemoglobin A1c 5.5 Calcium Level 8.9 Thyroid Stimulating 0.351 L Hormone (TSH) Medications Medication Current Medications IV Flush (NS 3 ml) 3 ml PER PROTOCOL IV ; Start 09/11/18 at 18:00 Ondansetron HCl (Zofran Tab) 4 mg Q6H PRN PO NAUSEA/VOMITING; Start 09/11/18 at 18:00 Acetaminophen (Tylenol Tab) 650 mg Q6H PRN PO .PAIN 1-3 OR TEMP Last administered on 09/12/18at 17:04; Admin Dose 650 MG; Start 09/11/18 at 18:00 Docusate Sodium (Colace) 100 mg Q12H PRN PO .CONSTIPATION; Start 09/11/18 at 18:00 Famotidine (Pepcid) 20 mg Q12 PO Last administered on 09/12/18at 09:08; Admin Dose 20 MG; Start 09/11/18 at 21:00 Enoxaparin Sodium (Lovenox) 40 mg DAILY SC Last administered on 09/12/18at 09:27 ; Admin Dose 40 MG; Start 09/11/18 at 18:00 Piperacillin Sod/ Tazobactam Sod 100 ml @ 200 mls/hr Q8 IVPB Last administered on 09/12/18at 15:48; Admin Dose 200 MLS/HR; Start 09/12/18 at 15:00 UMA MIRZA M.D. Sep 12, 2018 19:06
[2018-09-12] MEDS ORDERED: VANCOMYCIN HCL 1.5 GM in SOD CHLORIDE 0.9% 250 ML IVPB ONE (22:00)
[2018-09-13] VITALS (14 sets, daily range): BP systolic 96–127; BP diastolic 64–73; PULSE 88–103; RESP 18–20
[2018-09-13] MEDS: PIPER-TAZO 3.375 GM IV (PMX) 100 ML IVPB SCH ×3 (05:58→22:02)
[2018-09-13] MEDS: ENOXAPARIN 40 MG/0.4 ML SYG SC SCH (08:35)
[2018-09-13] MEDS: FAMOTIDINE 20 MG TAB PO SCH ×2 (08:35→20:09)
--- NOTE | 2018-09-13 09:36 | PN ---
Date/Time of Note Date/Time of Note DATE: 09/13/18 TIME: 09:33 Subjective Still having pleuritic chest pain Objective Vitals Vital Signs Date Temp Pulse Resp B/P (MAP) Pulse Ox O2 O2 Flow FiO2 Time Delivery Rate 09/13/18 103 08:01 09/13/18 98.0 20 116/68 90 07:27 (84) 09/12/18 Room Air 03:39 Intake and Output 09/12/18 09/12/18 09/13/18 1515:00 23:00 07:00 IntakeIntake Total 850 ml 100 ml BalanceBalance 850 ml 100 ml Neck supple Lungs clear to auscultation bilaterally Cardiac regular rate and rhythm. No murmurs or gallops Abdomen soft nontender nondistended normoactive bowel sounds No clubbing cyanosis or edema Nonfocal Results Result Diagram: 09/12/18 0542 09/12/18 0542 Medications Medications Current Medications IV Flush (NS 3 ml) 3 ml PER PROTOCOL IV ; Start 09/11/18 at 18:00 Ondansetron HCl (Zofran Tab) 4 mg Q6H PRN PO NAUSEA/VOMITING; Start 09/11/18 at 18:00 Acetaminophen (Tylenol Tab) 650 mg Q6H PRN PO .PAIN 1-3 OR TEMP Last administered on 09/12/18at 17:04; Admin Dose 650 MG; Start 09/11/18 at 18:00 Docusate Sodium (Colace) 100 mg Q12H PRN PO .CONSTIPATION; Start 09/11/18 at 18:00 Famotidine (Pepcid) 20 mg Q12 PO Last administered on 09/13/18at 08:35; Admin Dose 20 MG; Start 09/11/18 at 21:00 Enoxaparin Sodium (Lovenox) 40 mg DAILY SC Last administered on 09/13/18at 08:35; Admin Dose 40 MG; Start 09/11/18 at 18:00 Piperacillin Sod/ Tazobactam Sod 100 ml @ 200 mls/hr Q8 IVPB Last administered on 09/13/18at 05:58; Admin Dose 200 MLS/HR; Start 09/12/18 at 15:00 Vancomycin HCl (Vanco Iv Per Pharmacy) VANCOMYCIN PER PHARMA... PER PROTOCOL XX ; Start 09/12/18 at 19:00 Vancomycin HCl 250 ml @ 125 mls/hr Q12H IVPB ; Start 09/13/18 at 10:00 VTE Prophylaxis Risk score (from Ns)>0 risk: 2 SCD applied (from Ns): No SCD contraindication: low risk/ambulating Lines/Catheters IV Catheter Type: Saline Lock Reed in Place: No Assessment/Plan Assessment/Plan 68-year-old male with on and off fever x1 month and no obvious source of infection Pleuritic chest pain Pericardial effusion Leukocytosis Continue IV vancomycin and Zosyn Check pending serology results ID and cardiology follow-up Patient may need transesophageal echo GINGER MIDDLETON MD Sep 13, 2018 09:36
[2018-09-13] MEDS: VANCOMYCIN 1 GM 250 ML IVPB SCH ×2 (10:03→22:01)
[2018-09-13] MEDS ORDERED: FENTAnyl 50 MCG/ML VIAL ONE (15:57)
[2018-09-13] MEDS ORDERED: PROPOFOL 100 ML ONE (15:58)
--- NOTE | 2018-09-13 16:51 | CONS ---
Assessment/Plan Assessment/Plan Hospital Course (Demo Recall) Chest pain and fever Preserved left ventricular ejection fraction Pericardial effusion, trace to small Tobacco use Was requested to perform transesophageal echocardiogram by infectious disease, there are no vegetations seen Patient currently undergoing infectious work-up and possibly rheumatological If no contraindication, would consider a trial of colchicine Consultation Date/Type/Reason Admit Date/Time Sep 13, 2018 at 13:20 Initial Consult Date 09/12/18 Type of Consult Cardiology Requesting Provider: GINGER MIDDLETON MD Date/Time of Note DATE: 09/13/18 TIME: 16:48 24 HR Interval Summary Free Text/Dictation Chest pain still present but better. Denies palpitations, shortness of breath Exam/Review of Systems Vital Signs Vitals Vital Signs Date Temp Pulse Resp B/P (MAP) Pulse Ox O2 O2 Flow FiO2 Time Delivery Rate 09/13/18 95 16:01 09/13/18 98.1 20 127/73 90 11:39 (91) 09/12/18 Room Air 03:39 Intake and Output 09/12/18 09/12/18 09/13/18 1515:00 23:00 07:00 IntakeIntake Total 850 ml 100 ml BalanceBalance 850 ml 100 ml Exam Constitutional: alert, oriented (No apparent distress) Head: normocephalic Respiratory: other (Coarse breath sounds bilaterally, no wheezing) Cardiovascular: regular rate and rhythm (S1-S2 heard) Gastrointestinal: soft, non-tender, bowel sounds Extremities: other (No significant edema) Labs Result Diagram: 09/12/18 0542 09/12/18 0542 Results 24hrs Laboratory Tests Test 09/13/18 06:59 HIV (1&2) Antibody NEGATIVE Medications Medications Current Medications IV Flush (NS 3 ml) 3 ml PER PROTOCOL IV ; Start 09/11/18 at 18:00 Ondansetron HCl (Zofran Tab) 4 mg Q6H PRN PO NAUSEA/VOMITING; Start 09/11/18 at 18:00 Acetaminophen (Tylenol Tab) 650 mg Q6H PRN PO .PAIN 1-3 OR TEMP Last administered on 09/12/18at 17:04; Admin Dose 650 MG; Start 09/11/18 at 18:00 Docusate Sodium (Colace) 100 mg Q12H PRN PO .CONSTIPATION; Start 09/11/18 at 18:00 Famotidine (Pepcid) 20 mg Q12 PO Last administered on 09/13/18at 08:35; Admin Do se 20 MG; Start 09/11/18 at 21:00 Enoxaparin Sodium (Lovenox) 40 mg DAILY SC Last administered on 09/13/18at 08:35; Admin Dose 40 MG; Start 09/11/18 at 18:00 Piperacillin Sod/ Tazobactam Sod 100 ml @ 200 mls/hr Q8 IVPB Last administered on 09/13/18at 14:05; Admin Dose 200 MLS/HR; Start 09/12/18 at 15:00 Vancomycin HCl (Vanco Iv Per Pharmacy) VANCOMYCIN PER PHARMA... PER PROTOCOL XX ; Start 09/12/18 at 19:00 Vancomycin HCl 250 ml @ 125 mls/hr Q12H IVPB Last administered on 09/13/18at 10:03; Admin Dose 125 MLS/HR; Start 09/13/18 at 10:00 Miscellaneous Information (*Rx Drug Level Order Reminder*) VANCO TR AT 0900 0900 ONCE XX ; Start 09/14/18 at 09:00; Stop 09/14/18 at 09:01 Angel Rodriguez DO Sep 13, 2018 16:51
--- NOTE | 2018-09-13 16:55 | OPR ---
Date/Time of Note Date/Time of Note DATE: 09/13/18 TIME: 16:51 Operative Report Procedure Date: Sep 13, 2018 Preoperative Diagnosis SIRS with possible sepsis Postoperative Diagnosis No vegetations seen Operation/Procedure Performed Transesophageal echocardiogram Surgeon see signature line Canal Structure Operator Telephone Betting Clerk staff Anesthesia Type: MAC Estimated Blood Loss: none Transfusion none Specimen None Grafts/Implants none Complications none Pt Condition Post Procedure: stable Procedure Description Findings Left ventricle with normal left ventricular ejection fraction Right ventricle with normal systolic function Left atrium no gross abnormalities Right atrium with no gross abnormalities Intra-atrial septum appears intact with negative agitated bubble study Mitral valve is grossly normal with mild regurgitation Tricuspid valve appears trileaflet, mildly calcified with no significant regurgitation Tricuspid valve is grossly normal with no significant regurgitation Pulmonic valve is poorly visualized with no significant radiation Trace to small pericardial effusion seen Visualized portions of the aorta appear grossly normal Description of procedure After informed consent, patient sedated by anesthesia. Patient intubated with ALEM probe. Images were obtained as well as bubble study. Tube was removed, no immediate complications. Conclusion No evidence of vegetations/endocarditis Findings discussed with infectious disease and patient's Angel Rodriguez DO Sep 13, 2018 16:55
--- NOTE | 2018-09-13 18:32 | CONS ---
Assessment/Plan Assessment/Plan Hospital Course (Demo Recall) assessment/impression - small effusion with evidence of echodense material around the pericardium on bedside echo on 09/11/2018. Differential diagnoses include purulent pericarditis or aseptic pericarditis. - h/o "swollen and red" eye at the beginning of this month prior to the initial presentation at ER, resolved after using eye drops - chest CT on 08/27/2018 showed small to moderate pericardial effusion with a nonspecific loculated fluid collection along R heart border within the mediastin al fat, small left pleural effusion - recurrent fever, night sweat and chills concerning for disseminated infection; resolving after antibiotics were started. Transesophageal echo on 09/13/2018 showed no e/o endocarditis - 3 month h/o a painful cyst of R upper gum between 10/2017 and - h/o excision of this painful cyst of R upper gum in 01/2018. He took amoxicillin for total 7 days in the perioperative period - edentulous status, lost his entire teeth by age 37 - h/o R sided pneumonia with pleural effusion at [facility] approximately 20 years ago - h/o CT-guided R thoracentesis followed by a "surgery" (this may be VATS) - per PT, he was worked up for TB at that time (placed under resp isolation, collection of multiple resp samples) - active smoker - monthly trip to [facility] recommendations - transesophageal echo by Dr. Rodriguez appreciated - pending test results: quantiferon TB gold, coccidioides serology, adenovirus antibody, urine legionella antigen and M. pneumoniae serology - Pt's currently on IV vancomycin (09/12/2018-) and pip/tazo (09/11/2018-). If her blood cultures from 09/11/2018 are negative for MRSA, vancomycin may be discontinued tomorrow - I recommend minimal 2 weeks of pip/tazo; and repeat echocardiogram as outpatient. If pericardial fluid collection persists, I recommend extending his pip/tazo for 2 more weeks - I still think his painful cyst on R upper gum caused disseminated infection and contributed to pericardial infection. Therefore, I instructed Pt and his to see his maxillofacial surgeon and dentist for follow up - I'd like to see him in the office to review the results of lab, his response to treatment and new echo results management d/w Pt, his , Dr. Rodriguez and BOBO Langford Consultation Date/Type/Reason Admit Date/Time Sep 13, 2018 at 13:20 Initial Consult Date 09/12/18 Type of Consult ID Requesting Provider: GINGER MIDDLETON MD Date/Time of Note DATE: 09/13/18 TIME: 18:23 24 HR Interval Summary Constitutional: improved Detailed Summary Eyes: no complaints ENT: no complaints Respiratory: no complaints Cardiovascular: chest pain (R anterior, less than before) Gastrointestinal: no complaints Genitourinary: no complaints Musculoskeletal: no complaints Skin: no complaints Exam/Review of Systems Exam Vitals Vital Signs Date Temp Pulse Resp B/P (MAP) Pulse Ox O2 O2 Flow FiO2 Time Delivery Rate 09/13/18 92 20 101/66 98 Room Air 17:00 (78) 09/13/18 3.0 16:43 09/13/18 98.1 11:39 Intake and Output 09/12/18 09/12/18 09/13/18 1515:00 23:00 07:00 IntakeIntake Total 850 ml 100 ml BalanceBalance 850 ml 100 ml Constitutional: alert, oriented, well developed Psych: no complaints, nl mood/affect Head: normocephalic, atraumatic Eyes: nl conjunctiva, nl lids, nl sclera ENMT: nl external ears & nose, nl nasal mucosa & septum, mucosa pink and moist Neck: non-tender Respiratory: clear to auscultation, normal air movement Cardiovascular: regular rate and rhythm, nl pulses; No edema Gastrointestinal: soft, non-tender Musculoskeletal: nl extremities to inspection 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, nl mental status, nl speech Skin: nl turgor; No rash or lesions Results Result Diagram: 09/12/18 0542 09/12/18 0542 Results 24hrs Laboratory Tests Test 09/13/18 06:59 HIV (1&2) Antibody NEGATIVE Medications Medication Current Medications IV Flush (NS 3 ml) 3 ml PER PROTOCOL IV ; Start 09/11/18 at 18:00 Ondansetron HCl (Zofran Tab) 4 mg Q6H PRN PO NAUSEA/VOMITING; Start 09/11/18 at 18:00 Acetaminophen (Tylenol Tab) 650 mg Q6H PRN PO .PAIN 1-3 OR TEMP Last administered on 09/12/18at 17:04; Admin Dose 650 MG; Start 09/11/18 at 18:00 Docusate Sodium (Colace) 100 mg Q12H PRN PO .CONSTIPATION; Start 09/11/18 at 18:00 Famotidine (Pepcid) 20 mg Q12 PO Last administered on 09/13/18at 08:35; Admin Dose 20 MG; Start 09/11/18 at 21:00 Enoxaparin Sodium (Lovenox) 40 mg DAILY SC Last administered on 09/13/18at 08:35; Admin Dose 40 MG; Start 09/11/18 at 18:00 Piperacillin Sod/ Tazobactam Sod 100 ml @ 200 mls/hr Q8 IVPB Last administered on 09/13/18at 14:05; Admin Dose 200 MLS/HR; Start 09/12/18 at 15:00 Vancomycin HCl (Vanco Iv Per Pharmacy) VANCOMYCIN PER PHARMA... PER PROTOCOL XX ; Start 09/12/18 at 19:00 Vancomycin HCl 250 ml @ 125 mls/hr Q12H IVPB Last administered on 09/13/18at 10:03; Admin Dose 125 MLS/HR; Start 09/13/18 at 10:00 Miscellaneous Information (*Rx Drug Level Order Reminder*) VANCO TR AT 0900 0900 ONCE XX ; Start 09/14/18 at 09:00; Stop 09/14/18 at 09:01 UMA MIRZA M.D. Sep 13, 2018 18:32
--- NOTE | 2018-09-13 19:18 | RADRPT ---
Echocardiogram Report Patient Name: Meaghan SÁNCHEZ ID: [id number] : 1950 (68y 2m)Study Date: 09/12/2018 11:23:11 AM Gender: MAccession #: [id number] Tech: Melecio [facility] Location: [address] Ref.Physician: GINGER MIDDLETON Height(Cm): BSA: Weight(Kg): Quality: AdequateOrder Physician: GINGER MIDDLETON Account #: Procedures: Echocardiographic Report: Transthoracic echocardiogram with complete 2D, M-Mode, and doppler examination. Indications: Chest Pain. Measurements: 2D/M Mode Doppler Measurement Value Normal Range Measurement Value Normal Range LVIDd 2D 4.4 [ 4.2 - 5.8 ] cm AV Peak Jared 1.4 [ 100.0 - 170.0 ] cm/sec LVIDs 2D 3.6 [ 2.5 - 4.0 ] cm AV Peak PG 8.0 [ 2.0 - 9.0 ] mmHg LVPWd 2D 1.1 [ 0.6 - 1.0 ] cm LVOT Peak Jared 1.0 [ 70.0 - 110.0 ] cm/sec IVSd 2D 1.1 [ 0.6 - 1.0 ] cm LVOT Peak PG 4.0 [ 2.0 - 6.0 ] mmHg AoR Diam 2D 2.7 [ 2.6 - 3.4 ] cm MV E Peak Jared 0.9 [ 60.0 - 130.0 ] cm/sec EDV 2D 86.8 [ 62.0 - 150.0 ] ml MV A Peak Jared 0.7 [ 100.0 - 120.0 ] cm/sec ESV 2D 53.0 [ 21.0 - 61.0 ] ml MV E/A 1.3 [ 0.8 - 1.5 ] ratio EF 2D 38.9 [ 52.0 - 72.0 ] percent MV Decel Time 134 [ 104 - 258 ] msec LA Dimen 2D 3.2 [ 3.0 - 4.0 ] cm Lat E` Jared 0.1 [ 10.0 - 15.0 ] cm/sec Lateral E/E` 10.0 [ 1.0 - 2.0 ] ratio Med E` Jared 0.1 cm/sec MV E/A 1.3 [ 0.8 - 1.5 ] ratio TR Peak Jared 2.8 [ 100.0 - 280.0 ] cm/sec TR Peak PG 32.0 mmHg RVSP 35.0 [ 10.0 - 36.0 ] mmHg Findings: Left Ventricle: Normal left ventricular systolic function. Normal left ventricular cavity size. Sigmoid septum. Ejection fraction is visually estimated at 60 %. Right Ventricle: Normal right ventricular size. Normal right ventricular systolic function. Left Atrium: The left atrium is normal in size. Right Atrium: The right atrium is normal in size. Mitral Valve: Mild mitral leaflet calcification. Mild mitral annular calcification. Trace mitral regurgitation. Aortic Valve: No significant aortic stenosis or insufficiency. Aortic cusps appear mildly calcified. Tricuspid Valve: Normal appearance and function of the tricuspid valve with trace physiologic regurgitation. The estimated Peak RVSP is 35 mmHg. Pericardium: Trivial pericardial effusion. Aorta: Normal aortic root. IVC: Normal size and normal respiratory collapse consistent with normal right atrial pressure. Conclusions: Normal left ventricular systolic function. Normal left ventricular cavity size. Sigmoid septum. Ejection fraction is visually estimated at 60 %. Normal right ventricular size. Normal right ventricular systolic function. The left atrium is normal in size. The right atrium is normal in size. No significant valvular stenosis or regurgitation seen. Trivial pericardial effusion. Electronically Signed By: Angel Rodriguez 2018-09-13 19:17:18 PDT
[2018-09-14] VITALS (11 sets, daily range): BP systolic 112–128; BP diastolic 64–80; PULSE 77–89; RESP 16–20
[2018-09-14] MEDS: PIPER-TAZO 3.375 GM IV (PMX) 100 ML IVPB SCH ×3 (05:51→22:56)
[2018-09-14] MEDS: FAMOTIDINE 20 MG TAB PO SCH ×2 (09:28→20:19)
[2018-09-14] MEDS: ENOXAPARIN 40 MG/0.4 ML SYG SC SCH (09:32)
--- NOTE | 2018-09-14 11:46 | CONS ---
Assessment/Plan Assessment/Plan Hospital Course (Demo Recall) Chest pain and fever Preserved left ventricular ejection fraction Pericardial effusion, trace to small Tobacco use Was requested to perform transesophageal echocardiogram by infectious disease, there are no vegetations seen Patient currently undergoing infectious work-up and possibly rheumatological If no contraindication, would consider a trial of colchicine and NSAIDs Consultation Date/Type/Reason Admit Date/Time Sep 13, 2018 at 13:20 Initial Consult Date 09/12/18 Type of Consult Cardiology Requesting Provider: GINGER MIDDLETON MD Date/Time of Note DATE: 09/14/18 TIME: 11:44 24 HR Interval Summary Free Text/Dictation Chest discomfort is improving. Denies shortness of breath or palpitations Exam/Review of Systems Vital Signs Vitals Vital Signs Date Temp Pulse Resp B/P (MAP) Pulse Ox O2 O2 Flow FiO2 Time Delivery Rate 09/14/18 85 08:00 09/14/18 97.9 20 128/69 96 Room Air 07:24 (88) 09/13/18 3.0 16:43 Intake and Output 09/13/18 09/13/18 09/14/18 1515:00 23:00 07:00 IntakeIntake Total 700 ml 200 ml BalanceBalance 700 ml 200 ml Exam Constitutional: alert, oriented (No apparent distress) Head: normocephalic Respiratory: other (Coarse breath sounds bilaterally, no wheezing) Cardiovascular: regular rate and rhythm (S1-S2 heard) Gastrointestinal: soft, non-tender, bowel sounds Extremities: other (No significant edema) Labs Result Diagram: 09/14/18 0958 09/14/18 0958 Results 24hrs Laboratory Tests Test 09/14/18 09:58 White Blood Count 7.6 # Red Blood Count 3.41 L Hemoglobin 11.4 L Hematocrit 34.9 L Mean Corpuscular Volume 102.3 H Mean Corpuscular Hemoglobin 33.4 H Mean Corpuscular Hemoglobin Concent 32.7 Red Cell Distribution Width 12.4 Platelet Count 280 Mean Platelet Volume 9.4 Immature Granulocytes % 0.500 H Neutrophils % 72.4 Lymphocytes % 17.2 Monocytes % 8.0 Eosinophils % 1.6 Basophils % 0.3 Nucleated Red Blood Cells % 0.0 Immature Granulocytes # 0.040 H Neutrophils # 5.5 Lymphocytes # 1.3 Monocytes # 0.6 Eosinophils # 0.1 Basophils # 0.0 Nucleated Red Blood Cells # 0.0 Sodium Level 141 Potassium Level 3.9 Chloride Level 110 Carbon Dioxide Level 25 Anion Gap 6 Blood Urea Nitrogen 13 Creatinine 0.88 Est Glomerular Filtrat Rate mL/min > 60 Glucose Level 123 Calcium Level 9.0 Vancomycin Level Trough 8.4 L Medications Medications Current Medications IV Flush (NS 3 ml) 3 ml PER PROTOCOL IV ; Start 09/11/18 at 18:00 Ondansetron HCl (Zofran Tab) 4 mg Q6H PRN PO NAUSEA/VOMITING; Start 09/11/18 at 18:00 Acetaminophen (Tylenol Tab) 650 mg Q6H PRN PO .PAIN 1-3 OR TEMP Last administered on 09/12/18at 17:04; Admin Dose 650 MG; Start 09/11/18 at 18:00 Docusate Sodium (Colace) 100 mg Q12H PRN PO .CONSTIPATION; Start 09/11/18 at 18:00 Famotidine (Pepcid) 20 mg Q12 PO Last administered on 09/14/18at 09:28; Admin Dose 20 MG; Start 09/11/18 at 21:00 Enoxaparin Sodium (Lovenox) 40 mg DAILY SC Last administered on 09/14/18at 09:32; Admin Dose 40 MG; Start 09/11/18 at 18:00 Piperacillin Sod/ Tazobactam Sod 100 ml @ 200 mls/hr Q8 IVPB Last administered on 09/14/18at 05:51; Admin Dose 200 MLS/HR; Start 09/12/18 at 15:00 Vancomycin HCl (Vanco Iv Per Pharmacy) VANCOMYCIN PER PHARMA... PER PROTOCOL XX ; Start 09/12/18 at 19:00 Vancomycin HCl 250 ml @ 125 mls/hr Q12H IVPB Last administered on 09/13/18at 22:01; Admin Dose 125 MLS/HR; Start 09/13/18 at 10:00 Angel Rodriguez DO Sep 14, 2018 11:45
[2018-09-14] MEDS: VANCOMYCIN 1 GM 250 ML IVPB SCH (11:50)
--- NOTE | 2018-09-14 11:54 | PN ---
Date/Time of Note Date/Time of Note DATE: 09/14/18 TIME: 11:44 Assessment/Plan VTE Prophylaxis Risk score (from Ns)>0 risk: 3 SCD applied (from [facility] [place] [facility]): No SCD contraindicated: other Pharmacological prophylaxis: LMWH Lines/Catheters IV Catheter Type (from [facility]): Peripheral IV Urinary Cath still in place: No Assessment/Plan Assessment/Plan 68-year-old male with: 1. Subacute pericarditis, pericardial effusion, concerns for purulent versus aseptic pericarditis, still concern for infectious etiology, patient did fill Levaquin as an outpatient, currently recommendation from infectious disease is to complete at least 2 weeks of Zosyn IV, repeat echocardiogram and possible extension of antibiotics if needed. Blood cultures negative for MRSA, therefore vancomycin being discontinued today. Sepsis resolved, leukocytosis resolved as of today. Discussed with infectious disease and cardiology, patient to also be on colchicine for few weeks. Patient has been updated regarding long-term IV antibiotics and colchicine, he is agreeable, PICC line to be placed today. Arrangements for home discharge hopefully by tomorrow. Patient will need close follow-up with cardiology and infectious disease, Dr. Stark 2. Chest pain, secondary to #1, resolved. Prophylaxis: Lovenox for DVT prophylaxis, Pepcid for GI prophylaxis Disposition: PICC line placement today, hopefully discharge plan for tomorrow home with home health, IV antibiotics, outpatient follow-up with cardiology within 10 to 14 days with repeat echocardiogram, follow-up with infectious disease in 2 weeks for further decision regarding antibiotics length of treatment. Result Diagram: 09/14/1858 09/14/18 0958 Results 24hrs Laboratory Tests Test 09/14/18 09:58 White Blood Count 7.6 # Red Blood Count 3.41 L Hemoglobin 11.4 L Hematocrit 34.9 L Mean Corpuscular Volume 102.3 H Mean Corpuscular Hemoglobin 33.4 H Mean Corpuscular Hemoglobin Concent 32.7 Red Cell Distribution Width 12.4 Platelet Count 280 Mean Platelet Volume 9.4 Immature Granulocytes % 0.500 H Neutrophils % 72.4 Lymphocytes % 17.2 Monocytes % 8.0 Eosinophils % 1.6 Basophils % 0.3 Nucleated Red Blood Cells % 0.0 Immature Granulocytes # 0.040 H Neutrophils # 5.5 Lymphocytes # 1.3 Monocytes # 0.6 Eosinophils # 0.1 Basophils # 0.0 Nucleated Red Blood Cells # 0.0 Sodium Level 141 Potassium Level 3.9 Chloride Level 110 Carbon Dioxide Level 25 Anion Gap 6 Blood Urea Nitrogen 13 Creatinine 0.88 Est Glomerular Filtrat Rate mL/min > 60 Glucose Level 123 Calcium Level 9.0 Vancomycin Level Trough 8.4 L Subjective 24 Hr Interval Summary Free Text/Dictation Patient remained stable, afebrile and WBC trended down after initiation of abx . Appreciate recommendations from infectious disease, vancomycin will be discontinued today, I have clarified recommendation for outpatient IV antibiotics remain Zosyn for 2 weeks, therefore PICC line would be placed and will start working on home health arrangement for possible discharge tomorrow. Appreciate recommendations from cardiology also, patient to be on colchicine. 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, nl mental status, nl speech, nl strength Results Results 24hrs Laboratory Tests Test 09/14/18 09:58 White Blood Count 7.6 # Red Blood Count 3.41 L Hemoglobin 11.4 L Hematocrit 34.9 L Mean Corpuscular Volume 102.3 H Mean Corpuscular Hemoglobin 33.4 H Mean Corpuscular Hemoglobin Concent 32.7 Red Cell Distribution Width 12.4 Platelet Count 280 Mean Platelet Volume 9.4 Immature Granulocytes % 0.500 H Neutrophils % 72.4 Lymphocytes % 17.2 Monocytes % 8.0 Eosinophils % 1.6 Basophils % 0.3 Nucleated Red Blood Cells % 0.0 Immature Granulocytes # 0.040 H Neutrophils # 5.5 Lymphocytes # 1.3 Monocytes # 0.6 Eosinophils # 0.1 Basophils # 0.0 Nucleated Red Blood Cells # 0.0 Sodium Level 141 Potassium Level 3.9 Chloride Level 110 Carbon Dioxide Level 25 Anion Gap 6 Blood Urea Nitrogen 13 Creatinine 0.88 Est Glomerular Filtrat Rate mL/min > 60 Glucose Level 123 Calcium Level 9.0 Vancomycin Level Trough 8.4 L Imaging Imaging Operative Report Procedure Date: Sep 13, 2018 Preoperative Diagnosis SIRS with possible sepsis Postoperative Diagnosis No vegetations seen Operation/Procedure Performed Transesophageal echocardiogram Surgeon see signature line Alternative Medicine Practitioner Sas Programmer Analyst staff Anesthesia Type: MAC Estimated Blood Loss: none Transfusion none Specimen None Grafts/Implants none Complications none Pt Condition Post Procedure: stable Procedure Description Findings Left ventricle with normal left ventricular ejection fraction Right ventricle with normal systolic function Left atrium no gross abnormalities Right atrium with no gross abnormalities Intra-atrial septum appears intact with negative agitated bubble study Mitral valve is grossly normal with mild regurgitation Tricuspid valve appears trileaflet, mildly calcified with no significant reg urgitation Tricuspid valve is grossly normal with no significant regurgitation Pulmonic valve is poorly visualized with no significant radiation Trace to small pericardial effusion seen Visualized portions of the aorta appear grossly normal Description of procedure After informed consent, patient sedated by anesthesia. Patient intubated with ALEM probe. Images were obtained as well as bubble study. Tube was removed, no immediate complications. Conclusion No evidence of vegetations/endocarditis Findings discussed with infectious disease and patient's Medications Medication Current Medications IV Flush (NS 3 ml) 3 ml PER PROTOCOL IV ; Start 09/11/18 at 18:00 Ondansetron HCl (Zofran Tab) 4 mg Q6H PRN PO NAUSEA/VOMITING; Start 09/11/18 at 18:00 Acetaminophen (Tylenol Tab) 650 mg Q6H PRN PO .PAIN 1-3 OR TEMP Last administered on 09/12/18at 17:04; Admin Dose 650 MG; Start 09/11/18 at 18:00 Docusate Sodium (Colace) 100 mg Q12H PRN PO .CONSTIPATION; Start 09/11/18 at 18:00 Famotidine (Pepcid) 20 mg Q12 PO Last administered on 09/14/18at 09:28; Admin Dose 20 MG; Start 09/11/18 at 21:00 Enoxaparin Sodium (Lovenox) 40 mg DAILY SC Last administered on 09/14/18at 09:32; Admin Dose 40 MG; Start 09/11/18 at 18:00 Piperacillin Sod/ Tazobactam Sod 100 ml @ 200 mls/hr Q8 IVPB Last administered on 09/14/18at 05:51; Admin Dose 200 MLS/HR; Start 09/12/18 at 15:00 Vancomycin HCl (Vanco Iv Per Pharmacy) VANCOMYCIN PER PHARMA... PER PROTOCOL XX ; Start 09/12/18 at 19:00 Vancomycin HCl 250 ml @ 125 mls/hr Q12H IVPB Last administered on 09/13/18at 22:01; Admin Dose 125 MLS/HR; Start 09/13/18 at 10:00 NETO MUÑOZ Sep 14, 2018 11:54
[2018-09-14] MEDS ORDERED: LIDOCAINE 1% (MPF) 5 ML VIAL SC ONE (12:00)
--- NOTE | 2018-09-14 12:37 | CONS ---
Assessment/Plan Assessment/Plan Hospital Course (Demo Recall) assessment/impression - small effusion with evidence of echodense material around the pericardium on bedside echo on 09/11/2018. Differential diagnoses include purulent pericarditis or aseptic pericarditis. - h/o "swollen and red" eye at the beginning of this month prior to the initial presentation at ER, resolved after using eye drops - chest CT on 08/27/2018 showed small to moderate pericardial effusion with a nonspecific loculated fluid collection along R heart border within the mediastin al fat, small left pleural effusion - recurrent fever, night sweat and chills concerning for disseminated infection; resolving after antibiotics were started. Transesophageal echo on 09/13/2018 showed no e/o endocarditis - 3 month h/o a painful cyst of R upper gum between 10/2017 and - h/o excision of this painful cyst of R upper gum in 01/2018. He took amoxicillin for total 7 days in the perioperative period - edentulous status, lost his entire teeth by age 37 - h/o R sided pneumonia with pleural effusion at [facility] approximately 20 years ago - h/o CT-guided R thoracentesis followed by a "surgery" (this may be VATS) - per PT, he was worked up for TB at that time (placed under resp isolation, collection of multiple resp samples) - active smoker - monthly trip to [facility] recommendations - transesophageal echo by Dr. Michael brooks - pending test results: quantiferon TB gold, coccidioides serology, adenovirus antibody, urine legionella antigen and M. pneumoniae serology - d/c IV vancomycin (09/12/2018-) - continue pip/tazo (09/11/2018-) - I recommend minimal 2 weeks of pip/tazo; and repeat echocardiogram as outpatient. If pericardial fluid collection persists, I recommend extending his pip/tazo for 2 more weeks. I briefly explained the role of home health service to Pt - colchicine will be started - I still think his painful cyst on R upper gum caused disseminated infection and contributed to pericardial infection. Therefore, I instructed Pt and his w daniel to see his maxillofacial surgeon and dentist for follow up - I'd like to see him in the office to review the results of lab, his response to treatment and new echo results management d/w Pt, Dr. Rhodes Consultation Date/Type/Reason Admit Date/Time Sep 13, 2018 at 13:20 Initial Consult Date 09/12/18 Type of Consult ID Requesting Provider: GINGER MIDDLETON MD Date/Time of Note DATE: 09/14/18 TIME: 12:30 24 HR Interval Summary Constitutional: no complaints Detailed Summary Eyes: no complaints ENT: no complaints Respiratory: pleuritic pain (R anterior) Cardiovascular: chest pain (R anterior); No edema, No palpitations Gastrointestinal: no complaints Genitourinary: no complaints Musculoskeletal: no complaints Skin: no complaints Neurologic: no complaints Exam/Review of Systems Exam Vitals Vital Signs Date Temp Pulse Resp B/P (MAP) Pulse Ox O2 O2 Flow FiO2 Time Delivery Rate 09/14/18 97.3 78 20 127/80 98 Room Air 11:47 (96) 09/13/18 3.0 16:43 Intake and Output 09/13/18 09/13/18 09/14/18 1515:00 23:00 07:00 IntakeIntake Total 700 ml 200 ml BalanceBalance 700 ml 200 ml Constitutional: alert, oriented, well developed Psych: no complaints, nl mood/affect Head: normocephalic, atraumatic Eyes: nl conjunctiva, nl lids, nl sclera ENMT: nl external ears & nose, nl nasal mucosa & septum, mucosa pink and moist, other (s/p excision of cyst on R upper gum) Neck: supple, non-tender Respiratory: clear to auscultation, normal air movement Cardiovascular: regular rate and rhythm; No edema Gastrointestinal: soft, non-tender; No distended Musculoskeletal: nl extremities to inspection Extremities: No edema 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, nl mental status, nl speech, nl strength Skin: nl turgor; No rash or lesions Results Result Diagram: 09/14/1858 09/14/1858 Results 24hrs Laboratory Tests Test 09/14/18 09:58 White Blood Count 7.6 # Red Blood Count 3.41 L Hemoglobin 11.4 L Hematocrit 34.9 L Mean Corpuscular Volume 102.3 H Mean Corpuscular Hemoglobin 33.4 H Mean Corpuscular Hemoglobin Concent 32.7 Red Cell Distribution Width 12.4 Platelet Count 280 Mean Platelet Volume 9.4 Immature Granulocytes % 0.500 H Neutrophils % 72.4 Lymphocytes % 17.2 Monocytes % 8.0 Eosinophils % 1.6 Basophils % 0.3 Nucleated Red Blood Cells % 0.0 Immature Granulocytes # 0.040 H Neutrophils # 5.5 Lymphocytes # 1.3 Monocytes # 0.6 Eosinophils # 0.1 Basophils # 0.0 Nucleated Red Blood Cells # 0.0 Sodium Level 141 Potassium Level 3.9 Chloride Level 110 Carbon Dioxide Level 25 Anion Gap 6 Blood Urea Nitrogen 13 Creatinine 0.88 Est Glomerular Filtrat Rate mL/min > 60 Glucose Level 123 Calcium Level 9.0 Vancomycin Level Trough 8.4 L Medications Medication Current Medications IV Flush (NS 3 ml) 3 ml PER PROTOCOL IV ; Start 09/11/18 at 18:00 Ondansetron HCl (Zofran Tab) 4 mg Q6H PRN PO NAUSEA/VOMITING; Start 09/11/18 at 18:00 Acetaminophen (Tylenol Tab) 650 mg Q6H PRN PO .PAIN 1-3 OR TEMP Last administered on 09/12/18at 17:04; Admin Dose 650 MG; Start 09/11/18 at 18:00 Docusate Sodium (Colace) 100 mg Q12H PRN PO .CONSTIPATION; Start 09/11/18 at 18:00 Famotidine (Pepcid) 20 mg Q12 PO Last administered on 09/14/18at 09:28; Admin Dose 20 MG; Start 09/11/18 at 21:00 Enoxaparin Sodium (Lovenox) 40 mg DAILY SC Last administered on 09/14/18at 09:32; Admin Dose 40 MG; Start 09/11/18 at 18:00 Piperacillin Sod/ Tazobactam Sod 100 ml @ 200 mls/hr Q8 IVPB Last administered on 09/14/18at 05:51; Admin Dose 200 MLS/HR; Start 09/12/18 at 15:00 Vancomycin HCl (Vanco Iv Per Pharmacy) VANCOMYCIN PER PHARMA... PER PROTOCOL XX ; Start 09/12/18 at 19:00 Vancomycin HCl 250 ml @ 125 mls/hr Q12H IVPB Last administered on 09/14/18at 11:50; Admin Dose 125 MLS/HR; Start 09/13/18 at 10:00 Naproxen (Naprosyn) 250 mg BID PO ; Start 09/14/18 at 12:30 Colchicine (Colchicine) 0.6 mg BID PO ; Start 09/14/18 at 12:30 UMA MIRZA M.D. Sep 14, 2018 12:37
[2018-09-14] MEDS: COLCHICINE 0.6 MG CAP PO SCH ×2 (13:45→20:18)
[2018-09-14] MEDS: NAPROXEN 250 MG TAB PO SCH ×2 (13:45→20:19)
[2018-09-15 04:16] VITALS: BP 119/69; PULSE 74; RESP 18
[2018-09-15] MEDS: PIPER-TAZO 3.375 GM IV (PMX) 100 ML IVPB SCH (05:43)
[2018-09-15 07:17] VITALS: BP 120/68; PULSE 74; RESP 16
[2018-09-15] MEDS: FAMOTIDINE 20 MG TAB PO SCH (09:00)
[2018-09-15] MEDS: COLCHICINE 0.6 MG CAP PO SCH (09:11)
[2018-09-15] MEDS: NAPROXEN 250 MG TAB PO SCH (09:12)
[2018-09-15] MEDS: ENOXAPARIN 40 MG/0.4 ML SYG SC SCH (09:19)
--- NOTE | 2018-09-15 10:26 | PN ---
Date/Time of Note Date/Time of Note DATE: 09/15/18 TIME: 10:19 Assessment/Plan VTE Prophylaxis Risk score (from Ns)>0 risk: 3 SCD applied (from Ns): No SCD contraindicated: other Pharmacological prophylaxis: LMWH Lines/Catheters IV [facility]from [facility]): Peripheral IV Urinary Cath still in place: No Assessment/Plan Assessment/Plan 68-year-old male with: 1. Subacute pericarditis, pericardial effusion, concerns for purulent versus aseptic pericarditis, still concern for infectious etiology, patient did fail Levaquin as an outpatient, currently recommendation from infectious disease is to complete at least 2 weeks of Zosyn IV, repeat echocardiogram in 2 weeks and possible extension of antibiotics if needed. Blood cultures negative for MRSA, therefore vancomycin discontinued yesterday. Sepsis resolved, leukocytosis resolved as of yesterday. Discussed with infectious disease and cardiology, patient to also be on colchicine for 2 to 4 weeks at least. Patient has been updated regarding long-term IV antibiotics and colchicine, he is agreeable, PICC line being placed this AM. Arrangements for home discharge with today. Patient will need close follow-up with cardiology and infectious disease, Dr. Stark 2. Chest pain, secondary to #1, resolved. Prophylaxis: Lovenox for DVT prophylaxis, Pepcid for GI prophylaxis Disposition: PICC line placement today, discharge plan for home with home health this afternoon for IV antibiotics, outpatient follow-up with cardiology within 10 to 14 days with repeat echocardiogram, follow-up with infectious disease in 2 weeks for further decision regarding antibiotics length of treatment. Result Diagram: 09/15/18 0536 09/15/18 0536 Results 24hrs Laboratory Tests Test 09/15/18 05:36 White Blood Count 6.0 # Red Blood Count 3.43 L Hemoglobin 11.4 L Hematocrit 34.7 L Mean Corpuscular Volume 101.2 H Mean Corpuscular Hemoglobin 33.2 H Mean Corpuscular Hemoglobin Concent 32.9 Red Cell Distribution Width 12.4 Platelet Count 287 Mean Platelet Volume 9.6 Immature Granulocytes % 0.500 H Neutrophils % 55.6 Lymphocytes % 30.9 Monocytes % 8.5 Eosinophils % 4.2 Basophils % 0.3 Nucleated Red Blood Cells % 0.0 Immature Granulocytes # 0.030 Neutrophils # 3.4 Lymphocytes # 1.9 Monocytes # 0.5 Eosinophils # 0.3 Basophils # 0.0 Nucleated Red Blood Cells # 0.0 Sodium Level 144 Potassium Level 4.2 Chloride Level 110 Carbon Dioxide Level 24 Anion Gap 10 Blood Urea Nitrogen 16 Creatinine 0.86 Est Glomerular Filtrat Rate mL/min > 60 Glucose Level 103 Calcium Level 9.3 Phosphorus Level 3.7 Magnesium Level 2.3 Total Bilirubin 0.3 Direct Bilirubin 0.00 Indirect Bilirubin 0.3 Aspartate Amino Transf (AST/SGOT) 34 Alanine Aminotransferase (ALT/SGPT) 27 Alkaline Phosphatase 75 Total Protein 6.3 Albumin 3.1 L Globulin 3.20 Albumin/Globulin Ratio 0.96 Subjective 24 Hr Interval Summary Free Text/Dictation Patient doing well today, no complaints, leukocytosis resolved for the past 48 hours, afebrile. Appreciate assistance from cardiology and infectious disease. Patient getting his PICC line placed this morning was discharge planning by this afternoon on IV Zosyn for 2 more weeks and also on colchicine with close follow-up outpatient with cardiology and infectious disease. Exam/Review of Systems Exam Vitals Vital Signs Date Temp Pulse Resp B/P (MAP) Pulse Ox O2 O2 Flow FiO2 Time Delivery Rate 09/15/18 97.4 74 16 120/68 96 07:17 (85) 09/15/18 Room Air 04:16 09/13/18 3.0 16:43 Intake and Output 09/14/18 09/14/18 09/15/18 1515:00 23:00 07:00 IntakeIntake Total 1200 ml 800 ml BalanceBalance 1200 ml 800 ml Constitutional: alert, oriented, well developed Respiratory: clear to auscultation, normal air movement Cardiovascular: regular rate and rhythm, nl pulses Gastrointestinal: soft, non-tender Musculoskeletal: nl extremities to inspection Extremities: normal pulses, other (no edema, clubbing or cyanosis ) 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, nl mental status, nl speech, nl strength Results Results 24hrs Laboratory Tests Test 09/15/18 05:36 White Blood Count 6.0 # Red Blood Count 3.43 L Hemoglobin 11.4 L Hematocrit 34.7 L Mean Corpuscular Volume 101.2 H Mean Corpuscular Hemoglobin 33.2 H Mean Corpuscular Hemoglobin Concent 32.9 Red Cell Distribution Width 12.4 Platelet Count 287 Mean Platelet Volume 9.6 Immature Granulocytes % 0.500 H Neutrophils % 55.6 Lymphocytes % 30.9 Monocytes % 8.5 Eosinophils % 4.2 Basophils % 0.3 Nucleated Red Blood Cells % 0.0 Immature Granulocytes # 0.030 Neutrophils # 3.4 Lymphocytes # 1.9 Monocytes # 0.5 Eosinophils # 0.3 Basophils # 0.0 Nucleated Red Blood Cells # 0.0 Sodium Level 144 Potassium Level 4.2 Chloride Level 110 Carbon Dioxide Level 24 Anion Gap 10 Blood Urea Nitrogen 16 Creatinine 0.86 Est Glomerular Filtrat Rate mL/min > 60 Glucose Level 103 Calcium Level 9.3 Phosphorus Level 3.7 Magnesium Level 2.3 Total Bilirubin 0.3 Direct Bilirubin 0.00 Indirect Bilirubin 0.3 Aspartate Amino Transf (AST/SGOT) 34 Alanine Aminotransferase (ALT/SGPT) 27 Alkaline Phosphatase 75 Total Protein 6.3 Albumin 3.1 L Globulin 3.20 Albumin/Globulin Ratio 0.96 Medications Medication Current Medications IV Flush (NS 3 ml) 3 ml PER PROTOCOL IV ; Start 09/11/18 at 18:00 Ondansetron HCl (Zofran Tab) 4 mg Q6H PRN PO NAUSEA/VOMITING; Start 09/11/18 at 18:00 Acetaminophen (Tylenol Tab) 650 mg Q6H PRN PO .PAIN 1-3 OR TEMP Last administered on 09/12/18at 17:04; Admin Dose 650 MG; Start 09/11/18 at 18:00 Docusate Sodium (Colace) 100 mg Q12H PRN PO .CONSTIPATION; Start 09/11/18 at 18:00 Famotidine (Pepcid) 20 mg Q12 PO Last administered on 09/14/18at 20:19; Admin Dose 20 MG; Start 09/11/18 at 21:00 Enoxaparin Sodium (Lovenox) 40 mg DAILY SC Last administered on 09/15/18at 09:19; Admin Dose 40 MG; Start 09/11/18 at 18:00 Piperacillin Sod/ Tazobactam Sod 100 ml @ 200 mls/hr Q8 IVPB Last administered on 09/15/18at 05:43; Admin Dose 200 MLS/HR; Start 09/12/18 at 15:00 Naproxen (Naprosyn) 250 mg BID PO Last administered on 09/15/18at 09:12; Admin Dose 250 MG; Start 09/14/18 at 12:30 Colchicine (Colchicine) 0.6 mg BID PO Last administered on 09/15/18at 09:11; Admin Dose 0.6 MG; Start 09/14/18 at 12:30 NETO MUÑOZ Sep 15, 2018 10:26
--- NOTE | 2018-09-15 10:39 | PDOCDIS ---
Discharge Instructions CONDITION [id number] Patient Condition: [id number] Stable HOME CARE INSTRUCTIONS: [id number] Diet Instructions: [id number] Regular ACTIVITY: [id number] Activity Restrictions: [id number] Slowly Increase Activity FOLLOW UP/APPOINTMENTS Follow-up Plan Follow-up with cardiology, in 10 to 14 days, patient will need a repeat 2D echocardiogram on follow-up per infectious disease recommendations, discussed with Dr Rodriguez Follow-up with infectious disease, Dr Brandy Stark, in 2 weeks Follow-up with primary care physician in 1 to 2 weeks. Follow-up with home health within 24 hours for IV antibiotics ordered. NETO MUÑOZ Sep 15, 2018 10:39
[2018-09-15] MEDS ORDERED: FAMO20TA18 PO (10:43)
[2018-09-15] MEDS ORDERED: ZOS3375I IV (10:43)
[2018-09-15] MEDS ORDERED: Colchicine PO (10:43)
[2018-09-15] MEDS ORDERED: NAPR-683 PO (10:43)
--- NOTE | 2018-09-15 11:05 | DS ---
Date/Time of Note Date/Time of Note DATE: 09/15/18 TIME: 11:04 Discharge Summary Admission/Discharge Info Admit Date/Time Sep 13, 2018 at 13:20 Discharge Date/Time 09/15/2018 Discharge Diagnosis 1. Subacute pericarditis, concerns for purulent versus aseptic pericarditis 2. Pericardial effusion 2ry to #1 2. Atypical Chest pain 2ry to #1 Patient Condition: Stable Consults Cardiology, Dr. Rodriguez Infectious disease, Dr. Stark Procedures ALEM, negative for vegetations Hx of Present Illness 68-year-old male with unremarkable past medical history who presented to Emergency Room with complaint of on and off fevers and pleuritic chest pain x1 month. The patient was seen by primary care physician as outpatient and treated with 7 days of Levaquin. His symptoms did not improve. He was seen in the Emergency Room on 08/27/2018. At that time, a CT pulmonary angiogram of the chest reveals no evidence of pulmonary embolus. However, there was a small to moderate pericardial effusion with nonspecific loculated fluid collection along the right heart border within the mediastinal fat. The patient received a course of steroids as outpatient and his symptoms improved for a short period of time. Hospital Course Patient was admitted to telemetry, he had a transthoracic echocardiogram which did show small pericardial effusion, no valvular abnormality. His blood cultures are negative for MRSA, he was started on Zosyn and vancomycin, vancomycin was discontinued within 24-hours once blood cultures were negative for MRSA. Patient is to remain on Zosyn for 2 more weeks, his WBC has trended down to normal while on antibiotics therefore there is still concern for possible purulent pericarditis. Multiple serologies have been sent and will be followed by infectious disease. Discussed with infectious disease and cardiology, patient stable to be discharged today with PICC line in place and on IV Zosyn for 2 weeks with outpatient repeat echocardiogram in 2 weeks and follow-up with cardiology, also follow-up with infectious disease, Dr Stark. Patient also has been started on Naprosyn and colchicine on this admission. Home Meds Active Scripts [Colchicine] 0.6 MG TAB No Conflict Check, 0.6 MG PO BID for 30 Days, 1 Refill Prov:NETO MUÑOZ 09/15/18 Famotidine* (Famotidine*) 20 Mg Tablet, 20 MG PO Q12 for 30 Days, TAB 3 Refills Prov:NETO MUÑOZ 09/15/18 Naproxen* (Naproxen*) 250 Mg Tablet, 250 MG PO BID for 30 Days, TAB Prov:NETO MUÑOZ 09/15/18 Piperacillin/Tazobactam Sod (ZOSYN) 3.375 Gm Soln, 3.375 GM IV Q8 for 14 Days, VIAL Prov:NETO MUÑOZ 09/15/18 Discontinued Reported Medications Levofloxacin* (Levaquin*) 500 Mg Tablet, 500 MG PO DAILY, TAB STARTED 08-23-18 FOR 7 DAYS 08/27/18 Discontinued Scripts Albuterol Sulfate* (Proair HFA*) 8.5 Gm Hfa.aer.ad, 2 PUFF INH Q6H PRN for WHEEZING AND SOB, #1 INHALER Prov:MILKA DAVENPORT MD 08/27/18 Follow-up Plan Follow-up with cardiology, in 10 to 14 days, patient will need a repeat 2D echocardiogram on follow-up per infectious disease recommendations, discussed with Dr Rodriguez Follow-up with infectious disease, Dr Brandy Stark, in 2 weeks Follow-up with primary care physician in 1 to 2 weeks. Follow-up with home health within 24 hours for IV antibiotics ordered. Primary Care Provider Edward Ontiveros Time spent on discharge: > 30 minutes Pending Labs Laboratory Tests Test 09/15/18 05:36 White Blood Count 6.0 10^3/ul (4.8-10.8) Red Blood Count 3.43 10^6/ul (4.70-6.10) Hemoglobin 11.4 g/dl (14.0-18.0) Hematocrit 34.7 % (42.0-52.0) Mean Corpuscular Volume 101.2 fl (82.0-101.0) Mean Corpuscular Hemoglobin 33.2 pg (29.0-33.0) Mean Corpuscular Hemoglobin Concent 32.9 g/dl (32.0-37.0) Red Cell Distribution Width 12.4 % (11.5-14.5) Platelet Count 287 10^3/UL (140-415) Mean Platelet Volume 9.6 fl (7.4-10.4) Immature Granulocytes % 0.500 % (0.001-0.429) Neutrophils % 55.6 % (39.0-77.0) Lymphocytes % 30.9 % (15.0-51.0) Monocytes % 8.5 % (0.0-11.0) Eosinophils % 4.2 % (0.0-7.0) Basophils % 0.3 % (0.0-2.0) Nucleated Red Blood Cells % 0.0 /100WBC (0.0-0.0) Immature Granulocytes # 0.030 10^3/ul (0.0-0.031) Neutrophils # 3.4 10^3/ul (1.6-7.5) Lymphocytes # 1.9 10^3/ul (0.8-2.9) Monocytes # 0.5 10^3/ul (0.3-0.9) Eosinophils # 0.3 10^3/ul (0.0-0.5) Basophils # 0.0 10^3/ul (0.0-0.1) Nucleated Red Blood Cells # 0.0 10^3/ul (0.0-0.0) Sodium Level 144 mmol/L (135-144) Potassium Level 4.2 mmol/L (3.5-5.1) Chloride Level 110 mmol/L (97-110) Carbon Dioxide Level 24 mmol/L (21-31) Anion Gap 10 (5-13) Blood Urea Nitrogen 16 mg/dl (7-20) Creatinine 0.86 mg/dl (0.61-1.24) Est Glomerular Filtrat Rate mL/min > 60 mL/min (>60) Glucose Level 103 mg/dl (70-220) Calcium Level 9.3 mg/dl (8.4-10.2) Phosphorus Level 3.7 mg/dl (2.5-4.9) Magnesium Level 2.3 mg/dl (1.7-2.5) Total Bilirubin 0.3 mg/dl (0.2-1.3) Direct Bilirubin 0.00 mg/dl (0.00-0.20) Indirect Bilirubin 0.3 mg/dl (0-1.1) Aspartate Amino Transf (AST/SGOT) 34 IU/L (15-46) Alanine Aminotransferase (ALT/SGPT) 27 IU/L (13-69) Alkaline Phosphatase 75 IU/L (42-121) Total Protein 6.3 g/dl (6.1-8.1) Albumin 3.1 g/dl (3.3-4.9) Globulin 3.20 g/dl (1.3-3.2) Albumin/Globulin Ratio 0.96 NETO MUÑOZ Sep 15, 2018 11:05
[2018-09-15 11:34] VITALS: BP 123/78; PULSE 80; RESP 16
--- NOTE | 2018-09-15 13:41 | CONS ---
Assessment/Plan Assessment/Plan Hospital Course (Demo Recall) Chest pain and fever Preserved left ventricular ejection fraction Pericardial effusion, trace to small Tobacco use Was requested to perform transesophageal echocardiogram by infectious disease, there are no vegetations seen Patient currently undergoing infectious work-up and possibly rheumatological Colchicine and NSAIDs was started yesterday, patient with improvement in symptoms, would continue as tolerated Consultation Date/Type/Reason Admit Date/Time Sep 13, 2018 at 13:20 Initial Consult Date 09/12/18 Type of Consult Cardiology Requesting Provider: GINGER MIDDLETON MD Date/Time of Note DATE: 09/15/18 TIME: 13:40 24 HR Interval Summary Free Text/Dictation Feeling much better today, denies chest pain, shortness of breath or palpitatio ns Exam/Review of Systems Vital Signs Vitals Vital Signs Date Temp Pulse Resp B/P (MAP) Pulse Ox O2 O2 Flow FiO2 Time Delivery Rate 09/15/18 97.9 80 16 123/78 96 11:34 (93) 09/15/18 Room Air 04:16 09/13/18 3.0 16:43 Intake and Output 09/14/18 09/14/18 09/15/18 1515:00 23:00 07:00 IntakeIntake Total 1200 ml 800 ml BalanceBalance 1200 ml 800 ml Exam Constitutional: alert, oriented (No apparent distress) Head: normocephalic Respiratory: other (Coarse breath sounds bilaterally, no wheezing) Cardiovascular: regular rate and rhythm (S1-S2 heard) Gastrointestinal: soft, non-tender, bowel sounds Extremities: other (No significant edema) Labs Result Diagram: 09/15/18 0536 09/15/18 0536 Results 24hrs Laboratory Tests Test 09/15/18 05:36 White Blood Count 6.0 # Red Blood Count 3.43 L Hemoglobin 11.4 L Hematocrit 34.7 L Mean Corpuscular Volume 101.2 H Mean Corpuscular Hemoglobin 33.2 H Mean Corpuscular Hemoglobin Concent 32.9 Red Cell Distribution Width 12.4 Platelet Count 287 Mean Platelet Volume 9.6 Immature Granulocytes % 0.500 H Neutrophils % 55.6 Lymphocytes % 30.9 Monocytes % 8.5 Eosinophils % 4.2 Basophils % 0.3 Nucleated Red Blood Cells % 0.0 Immature Granulocytes # 0.030 Neutrophils # 3.4 Lymphocytes # 1.9 Monocytes # 0.5 Eosinophils # 0.3 Basophils # 0.0 Nucleated Red Blood Cells # 0.0 Sodium Level 144 Potassium Level 4.2 Chloride Level 110 Carbon Dioxide Level 24 Anion Gap 10 Blood Urea Nitrogen 16 Creatinine 0.86 Est Glomerular Filtrat Rate mL/min > 60 Glucose Level 103 Calcium Level 9.3 Phosphorus Level 3.7 Magnesium Level 2.3 Total Bilirubin 0.3 Direct Bilirubin 0.00 Indirect Bilirubin 0.3 Aspartate Amino Transf (AST/SGOT) 34 Alanine Aminotransferase (ALT/SGPT) 27 Alkaline Phosphatase 75 Total Protein 6.3 Albumin 3.1 L Globulin 3.20 Albumin/Globulin Ratio 0.96 Angel Rodriguez DO Sep 15, 2018 13:41
[2018-09-15 15:10] LABS: ADENOVIRUS ANTIBODY <1:8
== END 2018-09-15 13:17 | disposition home health service (06) | DRG 316 ==
LOC: E/R 11:30 → TEL 13:53 → INTOOBSV 13:53 → OBSVTOIN 09-13 13:20
PROVIDERS: ADMIT Internal Medicine; ATTEND Internal Medicine
PROC: 02HV33Z Insertion of Infusion Device into Superior Vena Cava, Percutaneous Approach (ICD-10-PCS; principal; 2018-09-14)
DX: I30.9 Acute pericarditis, unspecified (principal); F17.210 Nicotine dependence, cigarettes, uncomplicated; I10 Essential (primary) hypertension; R07.89 Other chest pain
CPT/HCPCS: 36415; 36569; 71045; 76937; 80048; 80053; 80202; 81001; 82550; 82553; 83036; 83605; 83615; 83735; 83880; 84100; 84443; 84484; 84560; 85025; 85378; 85610; 85651; 86480; 86603; 86635; 86703; 86738; 87086; 87449; 93005; 93306; 93312; 93325; G0378; J0692; J1650; J2543; J3010; J3370; J7030; J7050